=== PATIENT | male | born 1940 | race Caucasian/White ===

== ENCOUNTER 2019-06-30 01:30 | Day surgery (SDC) | payer MEDICARE, SELFPAY ==
[2019-06-17 14:47] VITALS: BMI 19.8
[2019-06-30] VITALS (12 sets, daily range): BP systolic 123–157; BP diastolic 48–74; PULSE 62–82; RESP 14–22; TEMP 36.3–36.9; O2SAT 95–100
--- NOTE | ~2019-06-30 | XR_ITS ---
EXAMINATION: XR retrograde pyelogram LT DATE: 06/30/2019 18:04 [employer] INDICATION: Renal stones TECHNIQUE: Multiple fluoroscopic images from a left retrograde pyelogram are submitted for review.] FINDINGS: Comparison made to KUB dated 07/15/2018. There is retrograde contrast injection into the lef t ureter with a demonstration of persistent stricture in the distal aspect of the left ureter. Ureter is normal in course and caliber. Renal collecting systems are normal. There are extensive renal kiersten rial calcifications. IMPRESSION: 1. 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 No significant ureteral dilation. Correlat e with real time procedural findings for details. Reviewed, dictated and finalized at location A. [employer] INST[employer]ER IMPRESSION: 1. 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 No significant urete ral dilation. Correlate with real time procedural findings for details.
--- NOTE | 2019-06-30 11:46 | PM.HPGS ---
History of Present Illness History of Present Illness Consent: Risks, benefits, and alternatives have been discussed and questions answered. Patient agrees to proceed with procedure. Chief complaint: Ureteral Ca Narrative: Pineda Avalos is a 79 year old male who is s/p left distal ureterectomy with Boari flap. Recent surveillance cystoscopy showed several recurrences in bladder. Review of Systems Cardiovascular: Cardiovascular: Denies chest pain, Denies lightheadedness, Denies palpitations and Denies dyspnea Respiratory: Respiratory: Denies dyspnea Gastrointestinal: Gastrointestinal: Denies diarrhea, Denies nausea and Denies vomiting Genitourinary: Genitourinary: Denies hematuria and Denies dysuria Endocrine: Endocrine: Denies palpitations PMFSH Past Medical History Medical History Cancer Kidney disease Surgical History Surgical History History of angioplasty Family History Family History Father Hypertension Patient's father is Sibling Hypertension Family history of malignant neoplasm of male breast Family history of chronic obstructive pulmonary disease Family history unknown Family history of malignant neoplasm of breast in first degree relative Mother Patient's mother is Family history of Parkinson's disease, Onset Age: 79 Family history of Alzheimer's disease, Onset Age: 79 Acute myocardial infarction, Onset Age: 79 Other Familial primary pulmonary hypertension Social History Social History Smoking status: Former smoker Smoking end date: 06/01/12 Alcohol intake: never Meds Home Medications and Allergies Home Medications Medication Instructions Recorded Confirmed Type albuterol sulfate [ProAir HFA] 1 - 2 puff INHALATION QID PRN 03/18/19 06/17/19 History cyanocobalamin (vitamin B-12) 1,000 mcg PO DAILY 03/18/19 06/17/19 History ferrous sulfate 324 mg PO DAILY 03/18/19 06/17/19 History folic acid 0.4 mg PO DAILY 03/18/19 06/17/19 History lybgiqbd-sks-WG-lycopen-lutein 1 tablet PO DAILY 03/18/19 06/17/19 History [Centrum Silver] gabapentin 300 mg capsule 300 mg PO HS #90 cap 05/26/19 06/17/19 Rx tiotropium bromide 18 mcg capsule 1 cap INHALATION DAILY #30 05/26/19 06/17/19 Rx with inhalation device inhalation amiodarone 200 mg PO DAILY 06/17/19 06/17/19 History apixaban [Eliquis] 2.5 mg PO BID 06/17/19 06/17/19 History calcitriol 0.25 mcg PO 3XW 06/17/19 06/17/19 History carbidopa-levodopa 1 tablet PO TID 06/17/19 06/17/19 History Allergies Allergy/AdvReac Type Severity Reaction Status Date / Time latanoprost Allergy Mild CURLED Verified 06/17/19 13:26 EYELASHES UNDER AND AFFECTED EYESIGHT Exam Const: General: no acute distress Resp: Effort & Inspection: normal respiratory effort GI: Inspection: non-distended GI Palp: No abdominal tenderness and No Guarding due to palpation present (GI) Auscultation: normal bowel sounds Assessment and Plan Assessment and plan (1) Cancer of overlapping sites of bladder: Code(s): C67.8 - Malignant neoplasm of overlapping sites of bladder Status: Acute (2) History of cancer of ureter: Code(s): Z85.54 - Personal history of malignant neoplasm of ureter Status: Acute Assessment and Plan: Transurethal resection bladder tumors. Cystoscopy, bilateral retrograde pyelography.
--- NOTE | 2019-06-30 12:27 | WPDANESEPPF ---
Anes - Initial Pre Proc Eval Procedure: Operation Date: 06/30/19 14:00 Proposed Procedures p Cystoscopy, Bilateral Retrograde Pyelogram - Syed Burns MD s Trans Urethral Resection Bladder Tumor - Syed Burns MD Date/Time: 06/30/19 12:27 Surgeon: Syed Burns MD Pre Op Diagnosis: Ureteral Ca Patient Data Age: 79 Gender: M Height: 6 ft Weight: 65.1 kg Allergies Allergy/AdvReac Type Severity Reaction Status Date / Time latanoprost Allergy Mild CURLED Verified 06/30/19 12:16 EYELASHES UNDER AND AFFECTED EYESIGHT Home Medications Medication Instructions Recorded Confirmed Type albuterol sulfate [ProAir HFA] 1 - 2 puff INHALATION QID PRN 03/18/19 06/30/19 History cyanocobalamin (vitamin B-12) 1,000 mcg PO DAILY 03/18/19 06/30/19 History ferrous sulfate 324 mg PO DAILY 03/18/19 06/30/19 History folic acid 0.4 mg PO DAILY 03/18/19 06/30/19 History puqrzhgq-qtz-BQ-lycopen-lutein 1 tablet PO DAILY 03/18/19 06/30/19 History [Centrum Silver] gabapentin 300 mg capsule 300 mg PO HS #90 cap 05/26/19 06/30/19 Rx tiotropium bromide 18 mcg capsule 1 cap INHALATION DAILY #30 05/26/19 06/30/19 Rx with inhalation device inhalation amiodarone 200 mg PO DAILY 06/17/19 06/30/19 History apixaban [Eliquis] 2.5 mg PO BID 06/17/19 06/30/19 History calcitriol 0.25 mcg PO 3XW 06/17/19 06/30/19 History carbidopa-levodopa 1 tablet PO TID 06/17/19 06/30/19 History Patient hx anesthesia problems: none Family hx anesthesia problems: none PMFSH Past Medical History Medical History Cancer Kidney disease Surgical History Surgical History History of angioplasty Family History Family History Father Hypertension Patient's father is Sibling Hypertension Family history of malignant neoplasm of male breast Family history of chronic obstructive pulmonary disease Family history unknown Family history of malignant neoplasm of breast in first degree relative Mother Patient's mother is Family history of Parkinson's disease, Onset Age: 79 Family history of Alzheimer's disease, Onset Age: 79 Acute myocardial infarction, Onset Age: 79 Other Familial primary pulmonary hypertension Social History Social History Smoking status: Former smoker Smoking end date: 06/01/12 Alcohol intake: never Anes - Eval Final PreProcedure Day of Procedure 06/30/19 12:27 Patient weight: normal Heart: regular rate and rhythm Lungs: decreased breath sounds Airway: Mallampati scale class II Neurological: other (alert) Last oral intake: >/= 8 hours ASA classification: IV Emergent: no Anesthetic plan: proceed Anesthesia type and monitoring: general LMA and standard monitoring Informed Consent: The patient's anesthetic plan and its attendant risks and benefits were discussed with the patient/family/POA. Questions were solicited and answers provided to the satisfaction of the patient/family/POA.
[2019-06-30] MEDS: LACTATED RINGERS 1,000 ML 30 ML IV CONT ×2 (12:30→15:15)
[2019-06-30 12:47] LABS: Glucose Point of Care 125 (65-105)
[2019-06-30] MEDS: ceFAZolin 2 GM/D5W 50 ML 2 GM/50 ML BAG IVPB (13:18)
[2019-06-30] MEDS: LIDOCAINE HCL 2% GEL UROJET 10 ML PKG MUCOUS MEM (13:20)
[2019-06-30 14:48] LABS: Glucose Point of Care 129 (65-105)
--- NOTE | 2019-06-30 14:53 | P.OP_ITS ---
Procedure Note - Detailed Date of procedure: 06/30/19 Pre-op diagnosis: Ureteral Ca Post-op diagnosis: same Procedure performed: 1. Cystoscopy, left RPG, attempted right RPG 2. TURBT (large, 9cm). 3. TURP Description of procedure: The patient was brought to the operative suite where he is prepped and draped in a routine sterile fashion while in the dorsal lithotomy position. This is done after the uneventful administration of a gener al LMA anesthetic. 2% Xylocaine jelly is introduced intraurethrally and allowed to stand for an appropriate period of time. A 24F resectoscope sheath was placed in the bladder and the bladder is circumferentially inspected carefully. He is found to have extensive urothelial carcinoma involving essentially the entire posterior bladder wall. Surprisingly, this does not involve the left ureteral orifice which is identified and preserved throughout this procedure. A left retrograde pyelogram was obtained with 8 F bulb-tipped catheter. This reveals no obstruction or filling defects of the left ureter or collecting system. I can identify the point where the right ureter empties into the right lateral bladder wall but because of the configuration of the Boari flap that was unable to intubate the right ureter for retrograde pyelography. I resected the areas of urothelial carcinoma in their entirety with an attempt made to include detrusor muscle for pathological evaluation of invasion. The base and periphery of these resected sites are cauterized with a rollerball electrode. I then obtained a random biopsy from a separate sites in the bladder and cauterized the base of that as well. This neoplasm extends into the prostatic urethra but appears to be quite superficial. I did a superficial resection of the prostate a bit circumferentially from the bladder neck to the verumontanum. The sites were likewise cauterized for hemostasis. A 22 F hematuria catheter is placed to continuous irrigation. Efflux was clear at the termination of the procedure. Estimated blood loss was 75 cc. The patient is taken to the recovery room having tolerated this procedure well. Anesthesia: GLMA Surgeon: Syed Burns MD Estimated blood loss (mL): 75 Drains: Yes (22F hematuria catheter) Packing: No Pathology: yes Complications: No immediate complications Condition: stable Disposition: PACU
--- NOTE | 2019-06-30 15:34 | SUR.PHASEI ---
1515; PT DENIES PAIN. C/O URGENCY WITH LAMA/CBI. FENTANYL GIVEN. 1535; SPOUSE UPDATED.
--- NOTE | 2019-06-30 16:03 | SUR.PHASEI ---
1600; CALLED DR ROMERO. CLARIFIED MEDICATION ORDERS HE PLACED IN COMPUTER CHART.
[2019-06-30] MEDS: DEXTROSE 5%/LACTATED RINGERS 1,000 ML 125 ML IV CONT (16:51)
[2019-06-30] MEDS: DOCUSATE SODIUM 100 MG CAPSULE PO (17:36)
[2019-06-30] MEDS: CARBIDOPA/LEVODOPA 25/250 MG TABLET 1 TABLET PO (17:36)
[2019-07-01] MEDS: DEXTROSE 5%/LACTATED RINGERS 1,000 ML 125 ML IV CONT (01:10)
[2019-07-01 05:33] LABS: Hemoglobin 10.4 g/dL (14.0-18.0)
[2019-07-01 05:51] LABS: Blood Urea Nitrogen 42 mg/dL (9-20); Calcium 8.1 mg/dL (8.4-10.2); Carbon Dioxide 24 mmol/L (22-30); Chloride 102 mmol/L (98-107); Estimated CRCL calculation 18 ml/min; Estimated Glomerular Filt Rate 23; Glucose 122 mg/dL (75-110); Potassium 5.1 mmol/L (3.4-5.0); Sodium 133 mmol/L (137-145)
[2019-07-01 05:53] VITALS: BP 129/59; PULSE 65; RESP 20; TEMP 37.6; O2SAT 97
--- NOTE | 2019-07-01 08:07 | WPDUROPN2 ---
Progress Note: A&P Assessment and Plan (1) Cancer of overlapping sites of bladder: Code(s): C67.8 - Malignant neoplasm of overlapping sites of bladder Status: Acute Assessment and Plan: Comfortable and urine clear after extensive TURBT/superficial prostate resection. Stop CBI / voiding trial later in day. Serum creat. 2.7 is typical for this pt. Subjective Subjective Date/Time Seen: 07/01/19 08:07 POD #1 TURP/TURBT Comfortable, no complaints Review of Systems Cardiovascular: Cardiovascular: Denies chest pain, Denies lightheadedness, Denies palpitations and Denies dyspnea Respiratory: Respiratory: Denies dyspnea Gastrointestinal: Gastrointestinal: Denies diarrhea, Denies nausea and Denies vomiting Genitourinary: Genitourinary: Denies hematuria and Denies dysuria Endocrine: Endocrine: Denies palpitations Exam Const: General: no acute distress Resp: Effort & Inspection: normal respiratory effort GI: Inspection: non-distended GI Palp: No abdominal tenderness and No Guarding due to palpation present (GI) Auscultation: normal bowel sounds Objective Data Vital Signs Vital Signs: Vital Signs - 24 hr 06/30/19 12:39 06/30/19 14:36 06/30/19 14:50 Temperature 36.3 C L 36.4 C L 36.7 C Pulse Rate 66 82 74 Respiratory Rate 18 14 18 Blood Pressure 134/54 L 152/72 H 148/70 H Pulse Oximetry 99 100 100 06/30/19 15:05 06/30/19 15:20 06/30/19 15:35 Temperature 36.7 C 36.7 C Pulse Rate 75 74 72 Respiratory Rate 22 H 20 20 Blood Pressure 157/74 H 141/72 H 147/69 H Pulse Oximetry 99 95 95 06/30/19 15:56 06/30/19 16:42 06/30/19 16:57 Temperature 36.9 C 36.6 C Pulse Rate 68 68 71 Respiratory Rate 18 16 16 Blood Pressure 146/60 H 131/52 L 134/58 L Pulse Oximetry 95 99 99 06/30/19 17:00 06/30/19 17:27 06/30/19 21:56 Temperature 36.9 C 36.7 C 36.7 C Pulse Rate 69 67 62 Respiratory Rate 16 16 20 Blood Pressure 124/54 L 129/48 L 123/48 L Pulse Oximetry 99 100 98 07/01/19 05:53 Temperature 37.6 C Pulse Rate 65 Respiratory Rate 20 Blood Pressure 129/59 L Pulse Oximetry 97 Intake/Output Intake/Output: Intake & Output 06/28/19 06/29/19 06/30/19 07/01/19 23:59 23:59 23:59 23:59 Intake Total 930 1950 Output Total 9350 1350 Balance -8420 600 Meds/Results Medications: Active Medications Generic Name Dose Route Start Last Admin Trade Name Freq PRN Reason Stop Dose Admin Hydrocodone Bitart/Acetaminophen 1 tab 06/30/19 15:04 [place] 5-325 Mg PO Q4H PRN Pain Rated 1-6 Albuterol 1 - 2 puff 06/30/19 16:01 Proventil Hfa INHALATION QID PRN Shortness Of Breath Amiodarone HCl 200 mg 07/01/19 09:00 Pacerone PO DAILY [facility] Calcitriol 0.25 mcg 07/01/19 09:00 Rocaltrol PO [id number] [facility] Carbidopa/Levodopa 1 tablet 06/30/19 17:00 06/30/19 17:36 Sinemet 25/250 Mg PO 1 tablet TID [facility] Administration Cephalexin HCl 500 mg 07/01/19 13:00 Keflex Capsule PO QID [facility] Cyanocobalamin 1,000 mcg 07/01/19 09:00 Vitamin B-12 Tab PO DAILY [facility] Docusate Sodium 100 mg 06/30/19 17:00 06/30/19 17:36 Colace Capsule PO 100 mg BID [facility] Administration Ferrous Sulfate 324 mg 07/01/19 09:00 Ferrous Sulfate PO DAILY [facility] Folic Acid 0.4 mg 07/01/19 09:00 Folic Acid PO DAILY [facility] Hyoscyamine 0.125 mg 06/30/19 15:04 Levsin Tablet SUBLINGUAL Q6H PRN Bladder Spasm Dextrose/Lactated Ringer's 1,000 mls @ 125 mls/hr 06/30/19 15:05 07/01/19 06:29 Dextrose 5%/Lactated Ringers IV CONT 125 mls/hr .Q8H ANDREA Infusion Morphine Sulfate 2 mg 06/30/19 15:04 Morphine Sulfate Inj IV PUSH Q2H PRN Pain Rated 7-10 Naloxone HCl 0.1 mg 06/30/19 15:04 Narcan IV PUSH Q2M PRN Opiate Reversal Ondansetron HCl 4 mg 06/30/19 15:04 Zofran Inj IV PUSH Q12H PRN Nausea And Vomiting Radiology Results: ITS Impressions
[2019-07-01] MEDS: CARBIDOPA/LEVODOPA 25/250 MG TABLET 1 TABLET PO ×3 (08:35→17:02)
[2019-07-01] MEDS: CYANOCOBALAMIN 1,000 MCG TABLET 1000 MCG PO (08:35)
[2019-07-01] MEDS: DOCUSATE SODIUM 100 MG CAPSULE PO ×2 (08:36→17:02)
[2019-07-01] MEDS: FOLIC ACID 0.4 MG TABLET PO (08:36)
[2019-07-01] MEDS: FERROUS SULFATE 324 MG TABLET PO (08:36)
[2019-07-01] MEDS: calcitrioL 0.25 MCG CAPSULE PO (08:37)
--- NOTE | 2019-07-01 09:49 | WPDANESPN ---
Anes - Prog Note Post-Op Date/Time: 07/01/19 09:49 Cardiovascular status: normal Respiratory status: normal Airway patency: baseline Mental status: baseline Post-Op hydration status: normal Vital Signs: Last Vital Signs Temp 37.6 C 07/01/19 05:53 Pulse 65 07/01/19 05:53 Resp 20 07/01/19 05:53 BP 129/59 L 07/01/19 05:53 Pulse Ox 97 07/01/19 05:53 I/O: Intake & Output 06/30/19 07/01/19 07/01/19 23:59 07:59 15:59 Intake Total 680 1950 240 Output Total 1300 1350 Balance -620 600 240 Laboratory Tests 07/01/19 04:56 07/01/19 04:56 06/30/19 06/30/19 07/01/19 12:45 14:46 04:56 Hgb 10.4 L Hct 32.0 L Sodium Potassium Chloride Carbon Dioxide BUN Creatinine Estim Creat Clear Calc Estimated GFR Glucose POC Capillary Glucose 125 H 129 H Calcium 07/01/19 04:56 Hgb Hct Sodium 133 L Potassium 5.1 H Chloride 102 Carbon Dioxide 24 BUN 42 H Creatinine 2.70 H Estim Creat Clear Calc 18 Estimated GFR 23 L Glucose 122 H POC Capillary Glucose Calcium 8.1 L Post-procedural complaints: none Patient Feedback: Patient satisfied with anesthetic care.
[2019-07-01] MEDS: CEPHALEXIN 500 MG CAPSULE PO ×2 (12:02→17:02)
[2019-07-01 14:00] VITALS: BP 106/49; PULSE 88; RESP 16; TEMP 36.6; O2SAT 96
--- NOTE | 2019-07-01 17:04 | PM.DS ---
DS: Diagnosis Admitting Diagnosis Admitting Diagnosis: Anemia in chronic kidney disease DS: Summary Time Spent with Patient Time attestation: Total time spent providing and/or coordinating discharge services: 20 min. This patient with extensive, recurrent bladder cancer extending into prostatic urethra admitted on the morning of his planned TURPB. The procedure was undertaken on that same day and included, not only extensive resection of his bladder but also superficially in his prostatic urethra. His post-operative course was uneventful. On the evening of the procedure he was tolerating a diet. On POD#1 his urine was clear on CBI. The urine remained clear and, therefore, the catheter was removed late morning. The patient was observed for several hours, until he demonstrated he could void effectively without significant hematuria. He was discharged with careful instruction on limiting physical activity x2 weeks and plans to f/ in 2-3 weeks. At discharge he was comfortable and tolerating a diet. Exam Const: General: no acute distress Resp: Effort & Inspection: normal respiratory effort GI: Inspection: non-distended GI Palp: No abdominal tenderness and No Guarding due to palpation present (GI) Auscultation: normal bowel sounds DS: Data Data Completed and Pending Pending studies at discharge: Pending at discharge 06/30/19 13:20 Surgical [PTH] Routine Surgical [PTH] Routine Surgical [PTH] Routine Labs on day of discharge: Labs from last 24 hours 07/01/19 07/01/19 04:56 04:56 Hgb 10.4 L Hct 32.0 L Sodium 133 L Potassium 5.1 H Chloride 102 Carbon Dioxide 24 BUN 42 H Creatinine 2.70 H Estim Creat Clear Calc 18 Estimated GFR 23 L Glucose 122 H Calcium 8.1 L Discharge Plan Discharge Patient Disposition: Home, Self-Care Discharge Instructions: 1) Activity: No lifting/straining >15lbs. x2 weeks. 2) Diet: Resume normal pre-admission diet. 3) Follow-up: 2-3 weeks / call office for appointment ([phone]). Discharge Orders: Discharge Order (Routine); Ordered 07/01/19 Ordered By: Syed Burns Discharge Medications: New hydrocodone-acetaminophen 5-325 mg tablet 1 - 2 tablet PO Q6H PRN (Reason: pain) Qty: 20 RF: 0 sulfamethoxazole-trimethoprim 800-160 mg tablet 1 tablet PO Q12H Qty: 6 RF: 0 Continued albuterol sulfate [ProAir HFA] 90 mcg/actuation Hfa Aerosol Inhaler 1 - 2 puff INHALATION QID PRN (Reason: Shortness Of Breath) RF: 0 cyanocobalamin (vitamin B-12) 1,000 mcg Tablet 1,000 mcg PO DAILY RF: 0 ferrous sulfate 324 mg (65 mg iron) Tablet,Delayed Release (Dr/Ec) 324 mg PO DAILY RF: 0 folic acid 400 mcg Tablet 0.4 mg PO DAILY RF: 0 carbidopa-levodopa 25-250 mg Tablet 1 tablet PO TID RF: 0 calcitriol 0.25 mcg Capsule 0.25 mcg PO 3XW RF: 0 gabapentin 300 mg capsule 300 mg PO HS Qty: 90 RF: 1 tiotropium bromide 18 mcg capsule, w/inhalation device 1 cap INHALATION DAILY Qty: 30 RF: 2 Held Centrum Silver 0.4-300-250 mg-mcg-mcg Tablet 1 tablet PO DAILY RF: 0 Hold Instructions: Resume on 07/06/19. Eliquis 2.5 mg Tablet 2.5 mg PO BID RF: 0 Hold Instructions: Resume on 07/06/19. Discontinued amiodarone 200 mg Tablet 200 mg PO DAILY RF: 0
== END 2019-07-01 18:05 | disposition home or self-care (01) ==
LOC: ANHSURGERY 11:42 → ANH2MED 07-01 09:12
PROVIDERS: PCP Internal Medicine; Visit Provider Urology
PROC: (CPT 52352; principal; 2019-06-30 14:00)
PROC: 0TBB8ZZ Excision of Bladder, Via Natural or Artificial Opening Endoscopic (ICD-10-PCS; CPT 52601; 2019-06-30 14:00)
PROC: 0VT08ZZ Resection of Prostate, Via Natural or Artificial Opening Endoscopic (ICD-10-PCS; CPT 52601; 2019-06-30 14:00)
DX: C67.8 Malignant neoplasm of overlapping sites of bladder (principal); C67.4 Malignant neoplasm of posterior wall of bladder; C68.0 Malignant neoplasm of urethra; N18.9 Chronic kidney disease, unspecified; D63.1 Anemia in chronic kidney disease; Z79.01 Long term (current) use of anticoagulants; Z87.891 Personal history of nicotine dependence; Z85.54 Personal history of malignant neoplasm of ureter
CPT/HCPCS: 52601; 52240; 52204; 36415; 74420; 80048; 85014; 85018; 87040; 88305; A9270; C1758; C1769; C1887; J0690; J1100; J2405; J2704; J3010; J7120; J7121; Q9966

== ENCOUNTER 2019-08-03 09:15 | Outpatient (CLI) | payer MEDICARE, SELFPAY ==
--- NOTE | ~2019-08-03 | CT_ITS ---
EXAMINATION: CT chest wo con DATE: 08/03/2019 09:33 INDICATION: Malignant neoplasm of upper lobe LT lung TECHNIQUE: Computed tomography (CT) of the chest was performed malignant neoplasm of the left upper l obe intravenous contrast. Additional 3D reconstructions utilizing coronal maximum intensity projectio n (MIP) were performed. Automated exposure control and iterative reconstruction technique were employ ed. The dose-length product was 149.55 mGy-cm. 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 Volume loss in the left upper lobe with no significant change in bandlike atelectasis/scarring extending towards a spiculated suprahilar mass in the left upper lobe. The mass is unchanged with og ntical corresponding measurements of 2.5 x 2.4 cm on series 4, image 42. Small calcified nodule consi stent with within the region of scarring at the right apex and a few tiny calcified nodules at the ri ght lung base, all consistent with old granulomatous disease. No new pulmonary nodules, pulmonary javier ma or pleural effusion. Heart size is normal. Atherosclerotic coronary artery calcifications. No riaz cardial effusion. Bilateral gynecomastia. No pathologically enlarged thoracic lymphadenopathy. Ectati c proximal descending thoracic aorta which measures up to 3.5 cm maximal diameter. Atherosclerotic ca lcifications at several of the arteries at the bilateral renal flavio. Visualized upper abdomen is othe rwise unremarkable. Right internal jugular central venous port catheter with distal tip at the caudal superior vena cava. Mild lower thoracic spondylosis. 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 No other suspicious lytic or daisy stic bone lesions. IMPRESSION: 1. No interval change in a spiculated 2.4 x 2.5 cm suprahilar left upper lobe mass consistent with tr eated lung cancer. No evident progressive or metastatic disease. 2. 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 Reviewed, dictated and finalized at location A. TNUT TANNER IMPRESSION: 1. No interval change in a spiculated 2.4 x 2.5 cm suprahilar left upper lobe m ass consistent with treated lung cancer. No evident progressive or metastatic d isease. 2. 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
== END 2019-08-03 09:16 | disposition home or self-care (01) ==
LOC: ANHIMG 09:17
PROVIDERS: PCP Internal Medicine; Visit Provider Internal Medicine Hematology & Oncology
DX: C34.12 Malignant neoplasm of upper lobe, left bronchus or lung (principal); R91.8 Other nonspecific abnormal finding of lung field
CPT/HCPCS: 71250

== ENCOUNTER 2019-08-19 07:24 | Outpatient (CLI) | payer MEDICARE, SELFPAY ==
[2019-08-19 08:06] LABS: Total Protein Urine Random 49 mg/dL
[2019-08-19 08:10] LABS: Albumin Level 3.9 g/dL (3.5-5.1); Blood Urea Nitrogen 43 mg/dL (9-20); Calcium 8.7 mg/dL (8.4-10.2); Carbon Dioxide 27 mmol/L (22-30); Chloride 107 mmol/L (98-107); Estimated Glomerular Filt Rate 19; Glucose 114 mg/dL (75-110); Phosphorus 3.7 mg/dL (2.5-4.5); Potassium 4.5 mmol/L (3.4-5.0); Sodium 139 mmol/L (137-145)
[2019-08-19 08:22] LABS: Parathyroid Intact 191.2 pg/mL (7.5-53.5)
== END 2019-08-19 07:25 | disposition home or self-care (01) ==
PROVIDERS: PCP Internal Medicine; Visit Provider Internal Medicine Nephrology
DX: I12.9 Hypertensive chronic kidney disease with stage 1 through stage 4 chronic kidney disease, or unspecified chronic kidney disease (principal); N18.4 Chronic kidney disease, stage 4 (severe); R80.8 Other proteinuria
CPT/HCPCS: 36415; 80069; 82306; 82570; 83970; 84156

== ENCOUNTER 2019-11-09 11:33 | Outpatient (CLI) | payer MEDICARE, SELFPAY ==
[2019-11-09 11:56] LABS: Cholesterol 129 mg/dL (0-200); HDL Direct 33 mg/dL; Triglycerides 124 mg/dL (<150)
[2019-11-09 12:07] LABS: LDL Cholesterol Direct 60 mg/dL
== END 2019-11-09 11:34 | disposition home or self-care (01) ==
PROVIDERS: PCP Internal Medicine; Visit Provider Internal Medicine Cardiovascular Disease
DX: I73.9 Peripheral vascular disease, unspecified (principal); I48.92 Unspecified atrial flutter; N18.4 Chronic kidney disease, stage 4 (severe); I12.9 Hypertensive chronic kidney disease with stage 1 through stage 4 chronic kidney disease, or unspecified chronic kidney disease
CPT/HCPCS: 36415; 80061

== ENCOUNTER 2019-11-10 08:39 | Outpatient (CLI) | payer MEDICARE, SELFPAY ==
--- NOTE | ~2019-11-10 | CT_ITS ---
EXAMINATION:CT chest wo con DATE: 11/10/2019 09:21 INDICATION: Malignant neoplasm of the upper lobe of left lung. TECHNIQUE: Computed tomography (CT) of the chest was performed without intravenous contrast. Automate d exposure control and iterative reconstruction technique were employed. The dose-length product (DLP ) was 153.64 mGy-cm. COMPARISON: Chest CT 08/03/2019 FINDINGS: There is moderate emphysema. There is scarring at the lung apices, right worse than left. T here is a 3.2 x 2.3 cm mass in the perihilar left upper lobe. No pleural effusion. The heart size is normal. There are coronary artery calcifications. There are calcifications of the aortic valve. No pe ricardial effusion. There is bilateral gynecomastia. There is a right internal jugular port with tip in superior vena cava. There is severe cervical spondylosis and mild thoracic spondylosis. 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 IMPRESSION: 1. Stable mass in perihilar left upper lobe, consistent with primary bronchogenic carcinoma. Reviewed, dictated and finalized at location A. IMPRESSION: 1. Stable mass in perihilar left upper lobe, consistent with primary bronchogen ic carcinoma.
== END 2019-11-10 08:40 | disposition home or self-care (01) ==
LOC: ANHIMG 08:43
PROVIDERS: PCP Internal Medicine; Visit Provider Internal Medicine Hematology & Oncology
DX: C34.12 Malignant neoplasm of upper lobe, left bronchus or lung (principal)
CPT/HCPCS: 71250

== ENCOUNTER 2019-11-22 00:20 | Outpatient (CLI) | payer MEDICARE, SELFPAY ==
[2019-11-22 18:56] LABS: SARS-CoV-2 RNA PCR Negative
== END 2019-11-22 00:21 | disposition home or self-care (01) ==
LOC: ANHCOVIDDT 00:20
PROVIDERS: PCP Internal Medicine; Visit Provider Urology
DX: Z01.818 Encounter for other preprocedural examination (principal); Z11.59 Encounter for screening for other viral diseases; C67.9 Malignant neoplasm of bladder, unspecified
CPT/HCPCS: 36415; 85610; 85730; 87635; C9803; U0003

== ENCOUNTER 2019-11-22 08:39 | Outpatient (CLI) | payer MEDICARE, SELFPAY ==
[2019-11-22 10:14] LABS: Prothrombin Time 13.2 Seconds (11.1-14.7)
[2019-11-22 10:15] LABS: Partial Thromboplastin Time 35.7 SECONDS (22.3-36.8)
== END 2019-11-22 08:40 | disposition home or self-care (01) ==
LOC: ANHSURGERY 08:41
PROVIDERS: Anesthesiology; PCP Internal Medicine; Visit Provider Urology
DX: Z01.818 Encounter for other preprocedural examination (principal); D63.1 Anemia in chronic kidney disease; N18.3 Chronic kidney disease, stage 3 (moderate)
CPT/HCPCS: 36415; 85610; 85730

== ENCOUNTER 2019-11-24 00:39 | Day surgery (SDC) | payer MEDICARE, SELFPAY ==
[2019-11-18 14:47] VITALS: BMI 20.3
--- NOTE | 2019-11-18 15:53 | PM.HPGS ---
History of Present Illness History of Present Illness Consent: Risks, benefits, and alternatives have been discussed and questions answered. Patient agrees to proceed with procedure. 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 Recent surveillance cystoscopy shows multiple recurrences of urothelial carcinoma in his bladder. Review of Systems Cardiovascular: Cardiovascular: Denies chest pain, Denies lightheadedness, Denies palpitations and Denies dyspnea Respiratory: Respiratory: Denies dyspnea Gastrointestinal: Gastrointestinal: Denies diarrhea, Denies nausea and Denies vomiting Genitourinary: Genitourinary: Denies hematuria and Denies dysuria Endocrine: Endocrine: Denies palpitations PMFSH Past Medical History Medical History Cancer Kidney disease Surgical History Surgical History History of angioplasty Family History Family History Father Hypertension Patient's father is Sibling Hypertension Family history of malignant neoplasm of male breast Family history of chronic obstructive pulmonary disease Family history unknown Family history of malignant neoplasm of breast in first degree relative Mother Patient's mother is Family history of Parkinson's disease, Onset Age: 79 Family history of Alzheimer's disease, Onset Age: 79 Acute myocardial infarction, Onset Age: 79 Other Familial primary pulmonary hypertension Social History Social History (Reviewed 07/07/19 @ 10:05 by Christen Alberto [facility]) Smoking packs per day: 1 Smoking cigarettes per day: 20.0 Years smoked: 50 Smoking pack-years: 50.00 Smoking status: Former smoker Tobacco type: cigarettes Smoking end date: 06/01/12 Alcohol intake: never Substance use: never Substance use type: does not use Gender identity (if verbalized by the patient): Male Spiritual care concerns: No Agree to blood products: Yes Meds Home Medications and Allergies Home Medications Medication Instructions Recorded Confirmed Type Centrum Silver 1 tablet PO DAILY 03/18/19 11/18/19 History cyanocobalamin (vitamin B-12) 1,000 mcg PO DAILY 03/18/19 11/18/19 History ferrous sulfate 324 mg PO DAILY 03/18/19 11/18/19 History folic acid 0.4 mg PO DAILY 03/18/19 11/18/19 History gabapentin 300 mg capsule 300 mg PO HS #90 cap 05/26/19 11/18/19 Rx calcitriol 0.25 mcg PO 3XW 06/17/19 11/18/19 History carbidopa-levodopa 1 tablet PO TID 06/17/19 11/18/19 History amiodarone 200 mg tablet 200 mg PO DAILY #30 tablet 08/25/19 11/18/19 Rx albuterol sulfate 90 mcg/actuation 1 inhalation INHALATION Q4H PRN 08/26/19 11/18/19 Rx aerosol inhaler #18 gm apixaban 2.5 mg tablet 2.5 mg PO BID #60 tablet 11/01/19 11/18/19 Rx umeclidinium 62.5 mcg-vilanterol 1 inhalation INHALATION Q24H #60 11/08/19 11/18/19 Rx 25 mcg/actuation powdr for each inhalation Allergies Allergy/AdvReac Type Severity Reaction Status Date / Time latanoprost Allergy Mild CURLED Verified 11/18/19 14:35 EYELASHES UNDER AND AFFECTED EYESIGHT Exam Const: General: no acute distress Resp: Effort & Inspection: normal respiratory effort GI: Inspection: non-distended GI Palp: No abdominal tenderness and No Guarding due to palpation present (GI) Auscultation: normal bowel sounds Assessment and Plan Assessment and plan (1) Bladder cancer: Qualifiers: Bladder location: unspecified site Qualified Code(s): C67.9 - Malignant neoplasm of bladder, unspecified Code(s): C67.9 - Malignant neoplasm of bladder, unspecified Status: Acute Assessment and Plan: cystosco
[2019-11-24] VITALS (7 sets, daily range): BP systolic 150–175; BP diastolic 53–67; PULSE 51–57; RESP 16–23; TEMP 36.3–36.4; O2SAT 97–100
--- NOTE | ~2019-11-24 | XR_ITS ---
EXAMINATION: XR retrograde pyelogram RT DATE: 11/24/2019 09:03 INDICATION: Cystoscopy. Removal of foreign body. Right retrograde Polygram. TECHNIQUE: Fluoroscopic images of the abdomen and pelvis were obtained during procedure performed by Dr. Burns. Radiologist was not present for the imaging or procedure. The amount of fluoroscopy time used during this procedure was 1.8 minutes. COMPARISON: None. FINDINGS: Initial image demonstrates a looped wire consistent with a snare extend beyond the tip of a cystoscop e projecting over the central pelvis. Subsequent images demonstrate a catheter and wire advanced into the right renal pelvis. Retrograde contrast administration demonstrates mild to moderate right hydro nephrosis. Stenting at the left common and external iliac arteries. IMPRESSION: 1. Fluoroscopy utilized during reported foreign body removal from the bladder. See procedure note for further detail. 2. Mild to moderate right hydronephrosis. Reviewed, dictated and finalized at location A.
[2019-11-24] MEDS: LACTATED RINGERS 1,000 ML 30 ML IV CONT (06:50)
--- NOTE | 2019-11-24 07:16 | WPDHPUPDATE1 ---
History and Physical Update Update Date/Time: 11/24/19 07:16 History and Physical has been reviewed, including an updated exam of the patient. There are NO changes in the patient's condition. Risks, benefits, and alternatives have been discussed and questions answered. Patient agrees to proceed with procedure.
--- NOTE | 2019-11-24 07:23 | WPDANESEPPF ---
Anes - Initial Pre Proc Eval Procedure: Operation Date: 11/24/19 08:15 Proposed Procedures p Cystoscopy, Right Ureteroscopy, Right Retrograde Pyelogram - Syed Burns MD s Possible Transurethral Resection Bladder Tumor - Syed Burns MD Date/Time: 11/24/19 07:23 Surgeon: Syed Burns MD Pre Op Diagnosis: Bladder Ca Patient Data Age: 79 Gender: M Height: 1.83 m Weight: 68 kg Allergies Allergy/AdvReac Type Severity Reaction Status Date / Time latanoprost Allergy Mild CURLED Verified 11/24/19 07:22 EYELASHES UNDER AND AFFECTED EYESIGHT Home Medications Medication Instructions Recorded Confirmed Type Centrum Silver 1 tablet PO DAILY 03/18/19 11/18/19 History cyanocobalamin (vitamin B-12) 1,000 mcg PO DAILY 03/18/19 11/18/19 History ferrous sulfate 324 mg PO DAILY 03/18/19 11/18/19 History folic acid 0.4 mg PO DAILY 03/18/19 11/18/19 History gabapentin 300 mg capsule 300 mg PO HS #90 cap 05/26/19 11/18/19 Rx calcitriol 0.25 mcg PO 3XW 06/17/19 11/18/19 History carbidopa-levodopa 1 tablet PO TID 06/17/19 11/18/19 History amiodarone 200 mg tablet 200 mg PO DAILY #30 tablet 08/25/19 11/18/19 Rx albuterol sulfate 90 mcg/actuation 1 inhalation INHALATION Q4H PRN 08/26/19 11/18/19 Rx aerosol inhaler #18 gm apixaban 2.5 mg tablet 2.5 mg PO BID #60 tablet 11/01/19 11/18/19 Rx umeclidinium 62.5 mcg-vilanterol 1 inhalation INHALATION Q24H #60 11/08/19 11/18/19 Rx 25 mcg/actuation powdr for each inhalation Patient hx anesthesia problems: none Family hx anesthesia problems: none PMFSH Past Medical History Medical History (Updated 11/23/19 @ 09:41 by Jefferson Rudd DO) Abdominal aortic aneurysm (AAA) >39 mm diameter Cancer Cancer of overlapping sites of bladder CKD (chronic kidney disease) stage 4, GFR 15-29 ml/min COPD (chronic obstructive pulmonary disease) Essential (primary) hypertension Former smoker Hereditary and idiopathic neuropathy, unspecified Kidney disease 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 Other and unspecified hyperlipidemia Parkinson's disease Vascular disease, peripheral Surgical History Surgical History (Updated 11/23/19 @ 09:41 by Jefferson Rudd DO) History of angioplasty S/P insertion of iliac artery stent Family History Family History Father Hypertension Patient's father is Sibling Hypertension Family history of malignant neoplasm of male breast Family history of chronic obstructive pulmonary disease Family history unknown Family history of malignant neoplasm of breast in first degree relative Mother Patient's mother is Family history of Parkinson's disease, Onset Age: 79 Family history of Alzheimer's disease, Onset Age: 79 Acute myocardial infarction, Onset Age: 79 Other Familial primary pulmonary hypertension Social History Social History Smoking packs per day: 1 Smoking cigarettes per day: 20.0 Years smoked: 50 Smoking pack-years: 50.00 Smoking status: Former smoker Tobacco type: cigarettes Smoking end date: 06/01/12 Alcohol intake: never Substance use: never Substance use type: does not use Gender identity (if verbalized by the patient): Male Spiritual care concerns: No Agree to blood products: Yes Anes - Eval Final PreProcedure Day of Procedure 11/24/19 07:23 Patient weight: normal Heart: regular rate and rhythm Lungs: clear to auscultation and normal air movement Airway: Mallampati scale class II Neurological: alert and oriented Last oral intake: >/= 8 hours ASA classification: IV Emergent: no Anesthetic plan: proceed Anesthesia type and monitoring: general LMA and standard monitoring Informed Consent: The patient's anesthetic plan and its attendant risks and benefits were discussed wit
[2019-11-24] MEDS: ceFAZolin 2 GM/D5W 50 ML 2 GM/50 ML BAG IVPB (08:12)
[2019-11-24] MEDS: LIDOCAINE HCL 2% GEL UROJET 10 ML PKG MUCOUS MEM (08:26)
--- NOTE | 2019-11-24 09:20 | P.OP_ITS ---
Procedure Note - Detailed Date of procedure: 11/24/19 Pre-op diagnosis: Bladder Ca Post-op diagnosis: same Procedure performed: 1. TURBT (small, 2cm). 2. Right retrograde pyelogram. 3. Right ureteroscopy. 4. Extraction foreign body from bladder. Description of procedure: patient is brought to the operative suite where he has prepped and draped in routine sterile fashion while in a dorsal lithotomy position after the uneventful induction of a general LMA anesthetic. A 24 F resectoscope was placed in his bladder and his bladder was carefully inspected. He has only very mild prostatic hyperplasia with minimal obstruction of the pr ostatic urethra. He has neoplasm in the posterior bladder wall which was resected in its entirety. This lesion measures about 1.5-2 cm in diameter. The base and periphery were cauterized. The remainder of the bladder mucosa is without hyperemia or apparent neoplasm. His reimplanted right ureter has a stitch in it that starting to form some stone on it. This is removed with meatotomy scissors. In the past a 0.035 in glidewire into the right renal pelvis. I dilated the distal most ureter and ureteroscopy with a 7.5 F digital ureteroscope. Retrograde pyelography was used to outline the collecting system and ensure the entire thing was inspected. There is no evidence of recurrence upper urinary tract carcinoma on the right side. Scopes and wires were removed and he was taken to the recovery room good condition. Anesthesia: GLMA Surgeon: Syed Burns MD Drains: No Packing: No Pathology: none sent Complications: No immediate complications Condition: stable Disposition: PACU
== END 2019-11-24 10:50 | disposition home health service (06) ==
PROVIDERS: PCP Internal Medicine; Visit Provider Urology
PROC: (CPT 52352; principal; 2019-11-24 08:15)
PROC: 0TBB8ZZ Excision of Bladder, Via Natural or Artificial Opening Endoscopic (ICD-10-PCS; CPT 52234; 2019-11-24 08:15)
DX: N30.00 Acute cystitis without hematuria (principal); N30.20 Other chronic cystitis without hematuria; N13.30 Unspecified hydronephrosis; Z85.51 Personal history of malignant neoplasm of bladder; Z18.89 Other specified retained foreign body fragments; I12.9 Hypertensive chronic kidney disease with stage 1 through stage 4 chronic kidney disease, or unspecified chronic kidney disease; N18.4 Chronic kidney disease, stage 4 (severe); E78.49 Other hyperlipidemia; G20 Parkinson's disease; J44.9 Chronic obstructive pulmonary disease, unspecified; G62.9 Polyneuropathy, unspecified; I73.9 Peripheral vascular disease, unspecified; Z95.820 Peripheral vascular angioplasty status with implants and grafts; Z90.6 Acquired absence of other parts of urinary tract; Z87.891 Personal history of nicotine dependence; Z85.118 Personal history of other malignant neoplasm of bronchus and lung; Z92.3 Personal history of irradiation; Z79.01 Long term (current) use of anticoagulants; Z79.899 Other long term (current) drug therapy
CPT/HCPCS: 52234; 74420; 88305; A9270; C1769; C1887; J0690; J2250; J2405; J2704; J3010; J7120; J9280; Q9966

== ENCOUNTER 2020-01-02 08:47 | Outpatient (CLI) | payer MEDICARE, SELFPAY ==
[2020-01-02 09:29] LABS: Total Protein Urine Random 28 mg/dL
[2020-01-02 09:32] LABS: Albumin Level 3.8 g/dL (3.5-5.1); Anion Gap 10.9 mmol/L (7-16); Blood Urea Nitrogen 41 mg/dL (9-20); Calcium 8.8 mg/dL (8.4-10.2); Carbon Dioxide 27 mmol/L (22-30); Chloride 104 mmol/L (98-107); Estimated Glomerular Filt Rate 23; Glucose 104 mg/dL (75-110); Phosphorus 3.6 mg/dL (2.5-4.5); Potassium 4.9 mmol/L (3.4-5.0); Sodium 137 mmol/L (137-145)
== END 2020-01-02 08:48 | disposition home or self-care (01) ==
LOC: ANHLAB 08:51
PROVIDERS: PCP Internal Medicine; Visit Provider Internal Medicine Nephrology
DX: I12.9 Hypertensive chronic kidney disease with stage 1 through stage 4 chronic kidney disease, or unspecified chronic kidney disease (principal); N18.3 Chronic kidney disease, stage 3 (moderate)
CPT/HCPCS: 36415; 80069; 82570; 84156

== ENCOUNTER 2020-03-19 01:06 | Outpatient (CLI) | payer MEDICARE, SELFPAY ==
[2020-03-19 17:41] LABS: SARS-CoV-2 RNA PCR Negative
== END 2020-03-19 01:07 | disposition home or self-care (01) ==
LOC: ANHCOVIDDT 01:07
PROVIDERS: PCP Internal Medicine; Visit Provider Urology
DX: Z01.812 Encounter for preprocedural laboratory examination (principal); Z20.828 Contact with and (suspected) exposure to other viral communicable diseases
CPT/HCPCS: 87635; C9803; U0003

== ENCOUNTER 2020-03-22 01:21 | Day surgery (SDC) | payer MEDICARE, SELFPAY ==
[2020-03-15 15:19] VITALS: BMI 19.9
--- NOTE | 2020-03-21 13:01 | WPDANESEPPF ---
Anes - Initial Pre Proc Eval Procedure: Operation Date: 03/22/20 09:30 Proposed Procedures p Cystoscopy, Bilateral Retrograde Pyelograms, Possible Right Ureteroscopy, - Syed Burns MD s Trans Urethral Resection Bladder Tumor with Mitomycin C - Syed Burns MD Date/Time: 03/21/20 13:01 Surgeon: Syed Burns MD Pre Op Diagnosis: ureteral CA,Bladder CA Patient Data Age: 80 Gender: M Height: 1.83 m Weight: 66.7 kg Allergies Allergy/AdvReac Type Severity Reaction Status Date / Time latanoprost Allergy Mild CURLED Verified 03/15/20 14:48 EYELASHES UNDER AND AFFECTED EYESIGHT Home Medications Medication Instructions Recorded Confirmed Type Centrum Silver 1 tablet PO DAILY 03/18/19 03/15/20 History cyanocobalamin (vitamin B-12) 1,000 mcg PO DAILY 03/18/19 03/15/20 History ferrous sulfate 324 mg PO DAILY 03/18/19 03/15/20 History folic acid 0.4 mg PO QPM 03/18/19 03/15/20 History calcitriol 0.25 mcg PO 3XW 06/17/19 03/15/20 History carbidopa-levodopa 1 tablet PO TID 06/17/19 03/15/20 History albuterol sulfate 90 mcg/actuation 1 inhalation INHALATION Q4H PRN 08/26/19 03/15/20 Rx aerosol inhaler #18 gm apixaban 2.5 mg tablet 2.5 mg PO BID #60 tablet 11/01/19 03/15/20 Rx umeclidinium 62.5 mcg-vilanterol 1 inhalation INHALATION Q24H #60 11/08/19 03/15/20 Rx 25 mcg/actuation powdr for each inhalation amiodarone 200 mg PO QAM 03/15/20 03/15/20 History gabapentin 300 mg PO HS 03/15/20 03/15/20 History Patient hx anesthesia problems: none Family hx anesthesia problems: none PMFSH Past Medical History Medical History (Updated 03/21/20 @ 13:03 by Lito Umanzor MD) Abdominal aortic aneurysm (AAA) >39 mm diameter Anemia in stage 3 chronic kidney disease Aortic root dilatation Bladder cancer Cancer Cancer of overlapping sites of bladder CKD (chronic kidney disease) stage 4, GFR 15-29 ml/min COPD (chronic obstructive pulmonary disease) PIKE (dyspnea on exertion) Essential (primary) hypertension Former smoker Hereditary and idiopathic neuropathy, unspecified History of cancer of ureter Hodgkin lymphoma Hypertension Impaired glucose tolerance (oral) Kidney disease 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 Open-angle glaucoma Other and unspecified hyperlipidemia PAD (peripheral artery disease) Parkinson's disease Paroxysmal atrial flutter Vascular disease, peripheral Surgical History Surgical History (Updated 11/23/19 @ 09:41 by Jefferson Rudd DO) History of angioplasty S/P insertion of iliac artery stent Family History Family History Father Hypertension Patient's father is Sibling Hypertension Family history of malignant neoplasm of male breast Family history of chronic obstructive pulmonary disease Family history unknown Family history of malignant neoplasm of breast in first degree relative Mother Patient's mother is Family history of Parkinson's disease, Onset Age: 79 Family history of Alzheimer's disease, Onset Age: 79 Acute myocardial infarction, Onset Age: 79 Other Familial primary pulmonary hypertension Social History Social History Smoking packs per day: 1 Smoking cigarettes per day: 20.0 Years smoked: 50 Smoking pack-years: 50.00 Smoking status: Former smoker Tobacco type: cigarettes Smoking end date: 06/01/12 Additional smoking assessment comments: 06/01/2012 Alcohol intake: never Substance use: never Substance use type: does not use Living arrangements: with family Gender identity (if verbalized by the patient): Male Spiritual care concerns: No Agree to blood products: Yes Anes - Eval Final PreProcedure Day of Procedure 03/21/20 13:01 Patient weight: normal Heart: regular rate and rhythm Lungs: clear to auscultat
[2020-03-22] VITALS (12 sets, daily range): BP systolic 144–179; BP diastolic 53–89; PULSE 55–65; RESP 16–20; TEMP 36.3–36.5; O2SAT 94–100
--- NOTE | ~2020-03-22 | XR_ITS ---
EXAMINATION: XR retrograde pyelogram BI DATE: 03/22/2020 09:24 INDICATION: Bladder cancer TECHNIQUE: 135 fluoroscopic images of the abdomen and pelvis were obtained during procedure performed by Dr. Burns. Radiologist was not present for the imaging or procedure. The amount of fluoroscopy t amalia used during this procedure was 1.0 minutes. COMPARISON: 11/24/2019 FINDINGS: Gout image demonstrates a left common and external iliac artery stent. Phlebolith in the left hemipel vis. Subsequent images demonstrate retrograde contrast injections into first the left ureter demonstr ating normal ureter and left renal collecting system with no hydroureteronephrosis or urothelial irre gularities. Subsequently a catheter is advanced into the proximal right ureter with contrast injectio n demonstrating mild right hydronephrosis. There are a few mobile gas bubbles change in size morpholo gy in the right renal pelvis. No urothelial irregularities in the contrast opacified right renal dhiraj ecting system, renal pelvis or proximal most right ureter. IMPRESSION: 1. Normal left retrograde urogram. 2. Mild right hydronephrosis of indeterminate etiology with the mid to distal right ureter not diagno stically evaluated on the provided images. See procedure note for further detail. Reviewed, dictated and finalized at location A. IMPRESSION: 1. Normal left retrograde urogram. 2. Mild right hydronephrosis of indeterminate etiology with the mid to distal r ight ureter not diagnostically evaluated on the provided images. See procedure note for further detail.
--- NOTE | 2020-03-22 06:31 | WPDHPUPDATE1 ---
History and Physical Update Update Date/Time: 03/22/20 06:31 History and Physical has been reviewed, including an updated exam of the patient. There are NO changes in the patient's condition. Risks, benefits, and alternatives have been discussed and questions answered. Patient agrees to proceed with procedure.
[2020-03-22] MEDS: LACTATED RINGERS 1,000 ML 30 ML IV CONT (08:07)
[2020-03-22] MEDS: ceFAZolin 2 GM/D5W 50 ML 2 GM/50 ML BAG IVPB (08:46)
--- NOTE | 2020-03-22 09:42 | P.OP_ITS ---
Procedure Note - Detailed Date of procedure: 03/22/20 Pre-op diagnosis: ureteral CA,Bladder CA Post-op diagnosis: same Procedure performed: 1. Cystoscopy with bilateral retrograde pyelography 2. Right ureteroscopy. 3. TURBT (large, 4-5cm). 4. Urethral dilatation Description of procedure: Patient is brought to the operative suite where he has prepped and draped in routine sterile fashion while in a dorsal lithotomy position. I was unable to pass a 19 F rigid cystoscope because of a bulbous urethral stricture. I dilated that from 16-26 F using Amplatz dilators. Then placed the rigid cystoscope perform bilateral retrograde pyelography. Left retrograde pyelogram was normal, without obstruction or filling defect. Right retrograde pyelogram was undertaken through his reimplanted right ureter/Boari flap. Both the right pyelogram and ureteroscopy showed no evidence of recurrence upper urinary tract urothelial carcinoma. Using a 24 F resectoscope and I resected an egg-like neoplasms in the anterior bladder wall at the 12 o'c lock position just inside the bladder neck. attempt to do and include detrusor muscle for pathological evaluation of invasion. The patient periphery of the Fedder cauterized with a rollerball electrode. Anesthesia: GLMA Surgeon: Syed Burns MD Drains: Yes (18F Schuler) Packing: No Pathology: yes Complications: No immediate complications Condition: stable Disposition: PACU
--- NOTE | 2020-03-22 09:46 | PM.PROC ---
Procedure Note - Detailed Date of procedure: 03/22/20 Pre-op diagnosis: Bladder CA Post-op diagnosis: same Procedure performed: Mitomycin C instillation in the bladder Description of procedure: With the patient in the supine position, a 16F Schuler catheter is placed using sterile technique. Using a protective facemask, gown and double layer of gloves Mitomycin-C in 50cc saline is administered through the catheter/into the bladder. The catheter is then plugged. Patient was instructed to lie supine x20min, then to roll both the left and right x20 min. each. Total dwell time will be 60 min., after which the bladder will be drained and catheter removed. Anesthesia: none Surgeon: Syed Burns MD Estimated blood loss (mL): 0 Drains: No Packing: No Pathology: none sent Complications: No immediate complications Condition: stable Disposition: PACU
--- NOTE | 2020-03-22 12:06 | SUR.PHASEII ---
PT AWAKE AND ALERT. DENIES PAIN.
== END 2020-03-22 12:45 | disposition home or self-care (01) ==
PROVIDERS: PCP Internal Medicine; Visit Provider Urology
PROC: (CPT 52352; principal; 2020-03-22 09:30)
PROC: 0TBB8ZZ Excision of Bladder, Via Natural or Artificial Opening Endoscopic (ICD-10-PCS; CPT 52240; 2020-03-22 09:30)
DX: C67.3 Malignant neoplasm of anterior wall of bladder (principal); N35.912 Unspecified bulbous urethral stricture, male; N13.30 Unspecified hydronephrosis; I71.4 Abdominal aortic aneurysm, without rupture; I12.9 Hypertensive chronic kidney disease with stage 1 through stage 4 chronic kidney disease, or unspecified chronic kidney disease; N18.4 Chronic kidney disease, stage 4 (severe); G20 Parkinson's disease; I48.92 Unspecified atrial flutter; I73.9 Peripheral vascular disease, unspecified; J44.9 Chronic obstructive pulmonary disease, unspecified; D63.1 Anemia in chronic kidney disease; Z79.01 Long term (current) use of anticoagulants; Z85.118 Personal history of other malignant neoplasm of bronchus and lung; Z92.3 Personal history of irradiation; Z87.891 Personal history of nicotine dependence
CPT/HCPCS: 52240; 51720; 74420; 88305; A9270; C1726; C1758; C1769; J0690; J1100; J2405; J2704; J3010; J7120; J9280; Q9966

== ENCOUNTER 2020-04-25 08:51 | Outpatient (CLI) | payer MEDICARE, SELFPAY ==
[2020-04-25 09:10] LABS: Hemoglobin 12.2 g/dL (14.0-18.0)
[2020-04-25 09:21] LABS: Anion Gap 8 mmol/L (8-16); Blood Urea Nitrogen 37 mg/dL (9-20); Carbon Dioxide 28 mmol/L (22-30); Chloride 104 mmol/L (98-107); Estimated Glomerular Filt Rate 22; Glucose 110 mg/dL (75-110); Potassium 4.8 mmol/L (3.4-5.0); Sodium 140 mmol/L (137-145)
[2020-04-25 09:25] LABS: Prothrombin Time 14.2 Seconds (11.1-14.7)
[2020-04-25 09:26] LABS: Partial Thromboplastin Time 35.1 SECONDS (22.3-36.8)
== END 2020-04-25 08:52 | disposition home or self-care (01) ==
LOC: ANHSURGERY 08:54
PROVIDERS: Anesthesiology; PCP Internal Medicine; Visit Provider Urology
DX: N18.4 Chronic kidney disease, stage 4 (severe) (principal); D63.1 Anemia in chronic kidney disease; Z01.818 Encounter for other preprocedural examination
CPT/HCPCS: 36415; 80048; 85014; 85018; 85610; 85730

== ENCOUNTER 2020-04-30 00:20 | Outpatient (CLI) | payer MEDICARE, SELFPAY ==
[2020-04-30 20:45] LABS: SARS-CoV-2 RNA PCR Negative
== END 2020-04-30 00:21 | disposition home or self-care (01) ==
LOC: ANHCOVIDDT 00:20
PROVIDERS: PCP Internal Medicine; Visit Provider Urology
DX: Z01.818 Encounter for other preprocedural examination (principal); Z20.828 Contact with and (suspected) exposure to other viral communicable diseases
CPT/HCPCS: 87635; C9803; U0003

== ENCOUNTER 2020-05-03 00:49 | Day surgery (SDC) | payer MEDICARE, SELFPAY ==
--- NOTE | 2020-04-23 16:46 | PM.HPGS ---
History of Present Illness History of Present Illness Consent: Risks, benefits, and alternatives have been discussed and questions answered. Patient agrees to proceed with procedure. Chief complaint: Bladder CA Narrative: Pineda Avalos is a 80 year old male who is very well known to me status post right distal ureterectomy in the remote past for upper tract urothelial carcinoma. He has had several recurrences urothelial carcinoma in his bladder, most recently an March 2020. At that time he had a fairly large neoplasm in his anterior bladder wall just inside the bladder neck. This was grossly resected entirely but pathology showed evidence of muscle invasion. He presents now for we resection of the bladder tumor base. Review of Systems Cardiovascular: Cardiovascular: Denies chest pain, Denies lightheadedness, Denies palpitations and Denies dyspnea Respiratory: Respiratory: Denies dyspnea Gastrointestinal: Gastrointestinal: Denies diarrhea, Denies nausea and Denies vomiting Genitourinary: Genitourinary: Denies hematuria and Denies dysuria Endocrine: Endocrine: Denies palpitations PMFSH Past Medical History Medical History Abdominal aortic aneurysm (AAA) >39 mm diameter Anemia in stage 3 chronic kidney disease Aortic root dilatation Bladder cancer Cancer Cancer of overlapping sites of bladder CKD (chronic kidney disease) stage 4, GFR 15-29 ml/min COPD (chronic obstructive pulmonary disease) PIKE (dyspnea on exertion) Essential (primary) hypertension Former smoker Hereditary and idiopathic neuropathy, unspecified History of cancer of ureter Hodgkin lymphoma Hypertension Impaired glucose tolerance (oral) Kidney disease 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 Open-angle glaucoma Other and unspecified hyperlipidemia PAD (peripheral artery disease) Parkinson's disease Paroxysmal atrial flutter Vascular disease, peripheral Surgical History Surgical History History of angioplasty S/P insertion of iliac artery stent Family History Family History Father Hypertension Patient's father is Sibling Hypertension Family history of malignant neoplasm of male breast Family history of chronic obstructive pulmonary disease Family history unknown Family history of malignant neoplasm of breast in first degree relative Mother Patient's mother is Family history of Parkinson's disease, Onset Age: 79 Family history of Alzheimer's disease, Onset Age: 79 Acute myocardial infarction, Onset Age: 79 Other Familial primary pulmonary hypertension Social History Social History Smoking packs per day: 1 Smoking cigarettes per day: 20.0 Years smoked: 50 Smoking pack-years: 50.00 Smoking status: Former smoker Tobacco type: cigarettes Smoking end date: 06/01/12 Additional smoking assessment comments: 06/01/2012 Alcohol intake: never Substance use: never Substance use type: does not use Gender identity (if verbalized by the patient): Male Spiritual care concerns: No Agree to blood products: Yes Meds Home Medications and Allergies Home Medications Medication Instructions Recorded Confirmed Type Centrum Silver 1 tablet PO DAILY 03/18/19 03/22/20 History cyanocobalamin (vitamin B-12) 1,000 mcg PO DAILY 03/18/19 03/22/20 History ferrous sulfate 324 mg PO DAILY 03/18/19 03/22/20 History folic acid 0.4 mg PO QPM 03/18/19 03/22/20 History calcitriol 0.25 mcg PO 3XW 06/17/19 03/22/20 History carbidopa-levodopa 1 tablet PO TID 06/17/19 03/22/20 History albuterol sulfate 90 mcg/actuation 1 inhalation INHALATION Q4H PRN 08/26/19 03/22/20 Rx aerosol inhaler #18 gm apixaban 2.5 mg tablet 2.5 mg PO BID #60 tablet 11/01/19
[2020-04-24 14:31] VITALS: BMI 19.7
[2020-05-03] VITALS (7 sets, daily range): BP systolic 126–173; BP diastolic 59–99; PULSE 56–67; RESP 16–24; TEMP 36.3; O2SAT 98–100
[2020-05-03] MEDS: LACTATED RINGERS 1,000 ML 30 ML IV CONT (06:42)
--- NOTE | 2020-05-03 06:45 | WPDHPUPDATE1 ---
History and Physical Update Update Date/Time: 05/03/20 06:45 History and Physical has been reviewed, including an updated exam of the patient. There are NO changes in the patient's condition. Risks, benefits, and alternatives have been discussed and questions answered. Patient agrees to proceed with procedure.
--- NOTE | 2020-05-03 07:29 | WPDANESEPP ---
Anes - Eval Pre Procedure Procedure: Operation Date: 05/03/20 08:15 Proposed Procedures p Re-Resection Bladder Tumor Base - Syed Burns MD Date/Time: 05/03/20 07:29 Pre Op Diagnosis: Bladder CA Patient Data Age: 80 Gender: M Height: 1.83 m Weight: 68.2 kg Last Vital Signs Temp 36.3 C L 05/03/20 06:20 Pulse 67 05/03/20 06:20 Resp 20 05/03/20 06:20 BP 145/60 H 05/03/20 06:20 Pulse Ox 98 05/03/20 06:20 Allergies Allergy/AdvReac Type Severity Reaction Status Date / Time latanoprost Allergy Mild CURLED Verified 05/03/20 07:24 EYELASHES UNDER AND AFFECTED EYESIGHT Home Medications Medication Instructions Recorded Confirmed Type Centrum Silver 1 tablet PO DAILY 03/18/19 05/03/20 History cyanocobalamin (vitamin B-12) 1,000 mcg PO DAILY 03/18/19 05/03/20 History ferrous sulfate 324 mg PO DAILY 03/18/19 05/03/20 History folic acid 0.4 mg PO QPM 03/18/19 05/03/20 History calcitriol 0.25 mcg PO 3XW 06/17/19 05/03/20 History carbidopa-levodopa 1 tablet PO TID 06/17/19 05/03/20 History albuterol sulfate 90 mcg/actuation 1 inhalation INHALATION Q4H PRN 08/26/19 05/03/20 Rx aerosol inhaler #18 gm apixaban 2.5 mg tablet 2.5 mg PO BID #60 tablet 11/01/19 05/03/20 Rx amiodarone 200 mg PO QAM 03/15/20 05/03/20 History gabapentin 300 mg PO HS 03/15/20 05/03/20 History Anoro Ellipta 1 inhalation INHALATION QAM 04/24/20 05/03/20 History Patient hx anesthesia problems: none Family hx anesthesia problems: none PMFSH Past Medical History Medical History Abdominal aortic aneurysm (AAA) >39 mm diameter Anemia in stage 3 chronic kidney disease Aortic root dilatation Bladder cancer Cancer Cancer of overlapping sites of bladder CKD (chronic kidney disease) stage 4, GFR 15-29 ml/min COPD (chronic obstructive pulmonary disease) PIKE (dyspnea on exertion) Essential (primary) hypertension Former smoker Hereditary and idiopathic neuropathy, unspecified History of cancer of ureter Hodgkin lymphoma Hypertension Impaired glucose tolerance (oral) Kidney disease 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 Open-angle glaucoma Other and unspecified hyperlipidemia PAD (peripheral artery disease) Parkinson's disease Paroxysmal atrial flutter Vascular disease, peripheral Surgical History Surgical History History of angioplasty S/P insertion of iliac artery stent Family History Family History Father Hypertension Patient's father is Sibling Hypertension Family history of malignant neoplasm of male breast Family history of chronic obstructive pulmonary disease Family history unknown Family history of malignant neoplasm of breast in first degree relative Mother Patient's mother is Family history of Parkinson's disease, Onset Age: 79 Family history of Alzheimer's disease, Onset Age: 79 Acute myocardial infarction, Onset Age: 80 Other Familial primary pulmonary hypertension Social History Social History Smoking packs per day: 1.25 Smoking cigarettes per day: 25.0 Years smoked: 58 Smoking pack-years: 72.50 Smoking status: Former smoker Tobacco type: cigarettes Smoking end date: 09/28/12 Additional smoking assessment comments: 06/01/2012 Alcohol intake: never Substance use: never Substance use type: does not use Living arrangements: with family Additional living arrangements comments: - LOUISA [phone] Gender identity (if verbalized by the patient): Male Spiritual care concerns: No Agree to blood products: Yes Exam Day of Procedure 05/03/20 07:29 Patient weight: normal Heart: regular rate and rhythm Lungs: clear to auscultation and normal air move
--- NOTE | 2020-05-03 07:52 | P.PNAN_ITS ---
Anes - Eval Final PreProcedure Day of Procedure 05/03/20 07:52 Patient weight: normal Heart: regular rate and rhythm Lungs: clear to auscultation Airway: Mallampati scale class III Neurological: alert and oriented Last oral intake: >/= 8 hours ASA classification: IV Emergent: no Anesthetic plan: proceed Anesthesia type and monitoring: general LMA and standard monitoring Informed Consent: The patient's anesthetic plan and its attendant risks and b enefits were discussed with the patient/family/POA. Questions were solicited and answers provided to the satisfaction of the patient/family/POA.
[2020-05-03] MEDS: ceFAZolin 2 GM/D5W 50 ML 2 GM/50 ML BAG IVPB (08:24)
--- NOTE | 2020-05-03 08:36 | PM.PROC ---
Procedure Note - Detailed Date of procedure: 05/03/20 Pre-op diagnosis: Bladder CA Post-op diagnosis: same Procedure performed: TURBT (re-resection, medium/4cm) Description of procedure: The patient was brought to the operative suite where he is prepped and draped in a routine sterile fashion while in the dorsal lithotomy position. This is done after the uneventful administration of systemic sedation. 2% Xylocaine jelly is introduced intraurethrally and allowed to stand for an appropriate period of time. A 24F resectoscope sheath was placed in the bladder and the bladder is circumferentially inspected carefully. There is an area of prior resection in the anterior bladder wall, just inside the bladder neck. This area is healing without obvious neoplastic regrowth at this point.. This area is resected in its entirety with an attempt made to include detrusor muscle for pathological evaluation of invasion. The base and periphery of this resected side is cauterized with a loop electrode. The bladder is emptied and the resectoscope was removed. The patient is taken to the recovery room having tolerated this procedure well. Anesthesia: GLMA Surgeon: Syed Burns MD Estimated blood loss (mL): 0 Packing: No Pathology: yes (Bladder tumor base) Complications: No immediate complications Condition: stable Disposition: PACU
== END 2020-05-03 10:01 | disposition home or self-care (01) ==
PROVIDERS: PCP Internal Medicine; Visit Provider Urology
PROC: 0TBB8ZZ Excision of Bladder, Via Natural or Artificial Opening Endoscopic (ICD-10-PCS; CPT 52235; principal; 2020-05-03 08:15)
DX: C67.3 Malignant neoplasm of anterior wall of bladder (principal); I71.4 Abdominal aortic aneurysm, without rupture; I12.9 Hypertensive chronic kidney disease with stage 1 through stage 4 chronic kidney disease, or unspecified chronic kidney disease; N18.30 Chronic kidney disease, stage 3 unspecified; J44.9 Chronic obstructive pulmonary disease, unspecified; G62.9 Polyneuropathy, unspecified; Z87.891 Personal history of nicotine dependence; Z85.72 Personal history of non-Hodgkin lymphomas; Z85.118 Personal history of other malignant neoplasm of bronchus and lung; H40.10X0 Unspecified open-angle glaucoma, stage unspecified; E78.5 Hyperlipidemia, unspecified; I73.9 Peripheral vascular disease, unspecified; I48.92 Unspecified atrial flutter; Z79.01 Long term (current) use of anticoagulants
CPT/HCPCS: 52235; 88305; 88307; A9270; J0690; J2704; J3010; J7120

== ENCOUNTER 2020-05-10 10:58 | Outpatient (CLI) | payer MEDICARE, SELFPAY ==
[2020-05-10 11:48] LABS: Cholesterol 135 mg/dL (0-200); HDL Direct 42 mg/dL; Triglycerides 73 mg/dL (<150)
[2020-05-10 12:01] LABS: LDL Cholesterol Direct 70 mg/dL
== END 2020-05-10 10:59 | disposition home or self-care (01) ==
LOC: ANHLAB 11:01
PROVIDERS: PCP Internal Medicine; Visit Provider Internal Medicine Cardiovascular Disease
DX: I73.9 Peripheral vascular disease, unspecified (principal); I10 Essential (primary) hypertension
CPT/HCPCS: 36415; 80061

== ENCOUNTER 2020-05-11 08:39 | Outpatient (CLI) | payer MEDICARE, SELFPAY ==
--- NOTE | ~2020-05-11 | CT_ITS ---
EXAMINATION: CT chest wo con DATE: 05/11/2020 09:13 INDICATION: Malignant neoplasm of the upper lobe of the left lung TECHNIQUE: Computed tomography (CT) of the chest was performed without intravenous contrast. The dose -length product (DLP) was 156.84 mGy-cm. Automated exposure control and iterative reconstruction tech [place] were employed. COMPARISON: 11/10/2019 FINDINGS: Again seen is a stable mass in the perihilar left upper lobe measuring approximately 3.3 x 2.3 cm. There is moderate emphysema. There is stable scarring in the lung apices, right greater than left. There are no new focal airspace opacities or suspicious nodules. A right internal jugular Port- A-Cath ends with its tip in the distal superior vena cava. No pathologically enlarged thoracic lymph nodes are identified. The heart size is normal. There is calcified coronary artery atherosclerosis. B ilateral gynecomastia is noted. There is mild thoracic spondylosis. IMPRESSION: 1. Stable perihilar mass of the left upper lobe, consistent with primary bronchogenic carcinoma. Reviewed, dictated and finalized at location [facility]. F WELLNESS OFFICER IMPRESSION: 1. Stable perihilar mass of the left upper lobe, consistent with primary bronch ogenic carcinoma.
== END 2020-05-11 08:40 | disposition home or self-care (01) ==
PROVIDERS: PCP Internal Medicine; Visit Provider Internal Medicine Hematology & Oncology
DX: C34.12 Malignant neoplasm of upper lobe, left bronchus or lung (principal)
CPT/HCPCS: 71250

== ENCOUNTER 2020-05-18 13:12 | Outpatient (CLI) | payer MEDICARE, SELFPAY ==
--- NOTE | 2020-05-18 14:15 | PCRCNOTE ---
SIX MINUTE WALK COMPLETED. HOME O2 WAS NOT REQUIRED. IT APPEARS THAT THE PATIENT WOULD NEED HOME O2, SATS ON FINGER PROBE AT REST ARE 95%, HEART RATE 66. ALTHOUGH PATIENT APPEARS MILDLY SOB WITH AUDIBLE WHEEZING. ONCE PT BEGAN WALK, AT 200 FEET I CHECK PULSE OX AND IT WASN'T PICKING UP SIGNAL. PATIENT HAS PARKINSONS AND IS VERY SHAKY, ESPECIALLY ONCE HE BEGAN WALKING. CHANGED PULSE OX TO A EAR PROBE, SATS ARE 99% ON ROOM AIR, WALKED WITH PATIENT FOR REMAINING 600 FEET TO ENSURE GOOD SIGNAL AND NO DESATS. LOWEST SAT WITH EXERTION ON EAR PROBE WAS 93% HEART RATE 89. HAND WRITTEN SIX MINUTE WALK FORM SCANNED IN. RELIABLE SATS CAN BE OBTAINED WITH EAR PROBE
== END 2020-05-18 13:13 | disposition home or self-care (01) ==
LOC: ANHPFT 13:14
PROVIDERS: PCP Internal Medicine; Visit Provider Internal Medicine Critical Care Medicine
DX: R09.02 Hypoxemia (principal)
CPT/HCPCS: 99199

== ENCOUNTER 2020-05-28 08:35 | Outpatient (CLI) | payer MEDICARE, SELFPAY ==
--- NOTE | ~2020-05-28 | CT_ITS ---
EXAMINATION: CT abdomen pelvis wo con DATE: 05/28/2020 08:53 INDICATION: Malignant neoplasm of overlapping sites of bladder medical history right ureteral cancer TECHNIQUE: Computed tomography (CT) of the abdomen and pelvis was performed without intravenous contr ast. Automated exposure control and iterative reconstruction technique were employed. Exam dose: 303 .84 mGy-cm total exam DLP. COMPARISON: 05/10/2019 PET/CT scan 06/07/2018 CT abdomen pelvis FINDINGS: There are moderate emphysematous changes in the lower lung zones. No infiltrate or consolid ation or pulmonary mass lesion is identified at the included lower lung smith. Normal heart size. No pericardial or pleural effusion. The liver, spleen, pancreas, and adrenal glands are unremarkable. The gallbladder is present. No bile duct or pancreatic duct dilatation. Interval resolution of right renal stone and right hydroureteronephrosis since 06/07/2018. Punctate nonobstructing lower pole left renal calculus versus small arterial calcification. There is extensive atherosclerotic calcification of the renal arteries. No ureteral calculus or hydroureterone phrosis. There is interval resection and mild deformity of the urinary bladder since 06/07/2018. There is extensive abdominal aortic calcification as well as calcification of the celiac and superior mesenteric, inferior mesenteric and iliac and femoral arteries. Fusiform up to 3.8 cm infrarenal abd ominal aortic aneurysm. Left external iliac artery stent. No intraperitoneal or retroperitoneal or pelvic mass lesion or adenopathy or ascites. Normal appendix. No bowel obstruction, bowel wall thickening, pneumatosis or intraperitoneal free air . Small fat-containing right inguinal hernia. Left hydrocele. No suspicious osteolytic or osteoblastic lesions. IMPRESSION: Status post bladder resection for history of right ureteral, bladder cancer; no metastat ic disease is identified Resolution of right ureteral calculus right hydroureteronephrosis Fusiform infrarenal 3.8 cm abdominal aortic aneurysm. Left external iliac artery stent. Reviewed, dictated and finalized at [facility]. Reviewed, dictated and finalized at location [facility]. OELECTRIC PRODUCTION MANAGER IMPRESSION: Status post bladder resection for history of right ureteral, bladd er cancer; no metastatic disease is identified Resolution of right ureteral calculus right hydroureteronephrosis Fusiform infrarenal 3.8 cm abdominal aortic aneurysm. Left external iliac arter y stent.
== END 2020-05-28 08:36 | disposition home or self-care (01) ==
PROVIDERS: PCP Internal Medicine; Visit Provider Urology
DX: C67.8 Malignant neoplasm of overlapping sites of bladder (principal); I72.2 Aneurysm of renal artery
CPT/HCPCS: 74176

== ENCOUNTER 2020-07-03 11:59 | Outpatient (CLI) | payer MEDICARE, SELFPAY ==
[2020-07-03 12:41] LABS: Creatinine Urine 87.7 mg/dL; Total Protein Urine Random 58 mg/dL; Ur Ttl Prot Creatinine Ratio 0.66 mg/mg (0-0.20)
[2020-07-03 12:45] LABS: Cholesterol 115 mg/dL (0-200); HDL Direct 45 mg/dL; Triglycerides 140 mg/dL (<150)
[2020-07-03 12:49] LABS: Hemoglobin A1C 4.9 % (<5.7)
[2020-07-03 12:56] LABS: LDL Cholesterol Direct 40 mg/dL
[2020-07-03 13:10] LABS: Parathyroid Intact 149.1 pg/mL (7.5-53.5)
[2020-07-03 13:25] LABS: Vitamin D 25 Hydroxy 25.7 ng/mL
[2020-07-03 14:40] LABS: Albumin Level 3.7 g/dL (3.5-5.1); Anion Gap 5 mmol/L (8-16); Blood Urea Nitrogen 35 mg/dL (9-20); Carbon Dioxide 28 mmol/L (22-30); Chloride 104 mmol/L (98-107); Estimated Glomerular Filt Rate 20; Glucose 100 mg/dL (75-110); Phosphorus 3.6 mg/dL (2.5-4.5); Potassium 5.1 mmol/L (3.4-5.0); Sodium 137 mmol/L (137-145)
== END 2020-07-03 12:00 | disposition home or self-care (01) ==
LOC: ANHLAB 12:02
PROVIDERS: PCP Internal Medicine; Visit Provider Internal Medicine Nephrology
DX: E78.5 Hyperlipidemia, unspecified (principal); R73.03 Prediabetes; E53.8 Deficiency of other specified B group vitamins; E55.9 Vitamin D deficiency, unspecified; I12.9 Hypertensive chronic kidney disease with stage 1 through stage 4 chronic kidney disease, or unspecified chronic kidney disease; N18.4 Chronic kidney disease, stage 4 (severe); R80.8 Other proteinuria
CPT/HCPCS: 36415; 80061; 80069; 82306; 82570; 82607; 83036; 83970; 84156

== ENCOUNTER 2020-10-01 13:43 | Emergency (ER) | payer MEDICARE, SELFPAY ==
[2020-10-01 13:50] VITALS: BP 105/53; PULSE 69; RESP 24; TEMP 36.9; O2SAT 100
--- NOTE | 2020-10-01 14:09 | ED.URI ---
HPI - URI/Sore Throat General Chief Complaint: Upper Respiratory Infection Stated Complaint: hoarse voice Time Seen by Provider: 10/01/20 14:08 Source: patient and RN notes reviewed Mode of arrival: ambulatory Limitations: no limitations History of Present Illness HPI Narrative: 80-year-old male presents concern for 2-day history of hoarse voice. He denies any sore throat, cough, shortness of breath, fever, body aches, chills, sweats. Reports occasional mild rhinorrhea. Denies nasal congestion or ear fullness. Denies difficulty swallowing, drooling. Denies dental problems or foul taste in his mouth. Reports he has been fully covered vaccinated. MD elicited complaint: other (Hoarse voice) Related Data Home Medications Medication Instructions Recorded Confirmed Centrum Silver 1 tablet PO DAILY 03/18/19 08/20/20 cyanocobalamin (vitamin B-12) 1,000 mcg PO DAILY 03/18/19 08/20/20 ferrous sulfate 324 mg PO DAILY 03/18/19 08/20/20 folic acid 0.4 mg PO QPM 03/18/19 08/20/20 carbidopa-levodopa 1 tablet PO TID 06/17/19 08/20/20 calcitriol 0.25 mcg capsule 0.25 mcg PO DAILY cap 07/03/20 08/20/20 cholecalciferol (vitamin D3) 50 mcg PO DAILY 07/09/20 08/20/20 [Vitamin D3] Allergies Allergy/AdvReac Type Severity Reaction Status Date / Time latanoprost Allergy Mild CURLED Verified 08/16/20 11:38 EYELASHES UNDER AND AFFECTED EYESIGHT Review of Systems Review of Systems: Narrative: CONSTITUTIONAL: Denies malaise, chills, sweats, or fever. EYES: Denies visual changes, redness, or discharge. ENT: Reports occasional rhinorrhea, and hoarse voice. Denies congestion, sinus pain, otalgia and sore throat. CARDIOVASCULAR: Denies chest pain, palpitations, or edema. RESPIRATORY: Denies cough or dyspnea. GASTROINTESTINAL: Denies abdominal pain, nausea, vomiting, diarrhea SKIN: Denies rash or itching. MUSCULOSKELETAL: Denies myalgia. NEUROLOGIC: Denies headache. All systems reviewed & are unremarkable except as noted in HPI and below PMFSH Past Medical History Medical History Abdominal aortic aneurysm (AAA) >39 mm diameter Anemia in stage 3 chronic kidney disease Aortic root dilatation Bladder cancer Cancer Cancer of overlapping sites of bladder CKD (chronic kidney disease) stage 4, GFR 15-29 ml/min COPD (chronic obstructive pulmonary disease) PIKE (dyspnea on exertion) Essential (primary) hypertension Former smoker Hereditary and idiopathic neuropathy, unspecified History of cancer of ureter Hodgkin lymphoma Hypertension Impaired glucose tolerance (oral) Kidney disease 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 Open-angle glaucoma Other and unspecified hyperlipidemia PAD (peripheral artery disease) Parkinson's disease Paroxysmal atrial flutter Vascular disease, peripheral Surgical History Surgical History History of angioplasty S/P insertion of iliac artery stent Family History Family History Father Hypertension Patient's father is Sibling Hypertension Family history of malignant neoplasm of male breast Family history of chronic obstructive pulmonary disease Family history unknown Family history of malignant neoplasm of breast in first degree relative Mother Patient's mother is Family history of Parkinson's disease, Onset Age: 79 Family history of Alzheimer's disease, Onset Age: 79 Acute myocardial infarction, Onset Age: 80 Other Familial primary pulmonary hypertension Social History Social History Smoking packs per day: 1.25 Smoking cigarettes per day: 25.0 Years smoked: 58 Smoking pack-years: 72.50 Smoking status: Former smoker Tobacco type: cigarettes Smoking end date: 09/28/12 Additional smoking as
== END 2020-10-01 14:29 | disposition home or self-care (01) ==
PROVIDERS: Emergency Provider Nurse Practitioner; PCP Internal Medicine
DX: J04.0 Acute laryngitis (principal); Z87.891 Personal history of nicotine dependence; I12.9 Hypertensive chronic kidney disease with stage 1 through stage 4 chronic kidney disease, or unspecified chronic kidney disease; N18.4 Chronic kidney disease, stage 4 (severe); J44.9 Chronic obstructive pulmonary disease, unspecified; I73.9 Peripheral vascular disease, unspecified; I48.91 Unspecified atrial fibrillation; Z85.51 Personal history of malignant neoplasm of bladder; Z85.54 Personal history of malignant neoplasm of ureter; Z85.118 Personal history of other malignant neoplasm of bronchus and lung; Z85.71 Personal history of Hodgkin lymphoma; Z95.1 Presence of aortocoronary bypass graft; D64.9 Anemia, unspecified
CPT/HCPCS: 99211; G0463

== ENCOUNTER 2020-10-15 08:33 | Outpatient (CLI) | payer MEDICARE, SELFPAY ==
--- NOTE | ~2020-10-15 | CT_ITS ---
EXAMINATION: CT chest abdomen pelvis wo con DATE: 10/15/2020 09:00 INDICATION: History of lung and bladder cancer TECHNIQUE: Transaxial computed tomographic images of the chest, abdomen, and pelvis were obtained. Th e dose-length product (DLP) was 379.42 mGy-cm. Automated exposure control and iterative reconstructio n technique were employed. COMPARISON: 05/08/2020, 05/11/2020, 11/10/2019 FINDINGS: CHEST CT: A perihilar left upper lobe mass persists and, although difficult to measure, has increased in size. There is been an increase in peripheral opacities extending laterally to the pleural surface. There i s moderate emphysema. Scarring is noted in the lung apices. A right internal jugular Port-A-Cath ends with its tip at the distal superior vena cava. There is no pleural effusion or pneumothorax. No path ologically enlarged thoracic lymph nodes are identified. The heart size is normal. Calcified coronary artery atherosclerosis is noted. There is bilateral gynecomastia. There is mild thoracic spondylosis . ABDOMEN/PELVIS CT: Within the limitations of noncontrast examination, the liver, spleen, pancreas, gallbladder, and righ t adrenal gland are normal. There is a 2.2 x 1.4 cm left adrenal nodule, not definitely identified on the prior examination. Vascular calcifications are noted in the kidneys. There is a 3.8 cm fusiform aneurysm of the infrarenal abdominal aorta. No pathologically enlarged abdominal or pelvic lymph node s are identified. There is calcified atherosclerosis of the aorta and many of the other arteries. The re is no free intraperitoneal gas or evidence of bowel obstruction. There is mild lumbar spondylosis. IMPRESSION: 1. Perihilar left upper lobe mass with apparent increase in size, consistent with primary bronchogeni c carcinoma. 2. Left adrenal mass, possibly metastatic disease, characterization limited without intravenous contr ast. Reviewed, dictated and finalized at location [facility]. IMPRESSION: 1. Perihilar left upper lobe mass with apparent increase in size, consistent wi primary bronchogenic carcinoma. 2. Left adrenal mass, possibly metastatic disease, characterization limited wit hout intravenous contrast.
== END 2020-10-15 08:34 | disposition home or self-care (01) ==
PROVIDERS: PCP Internal Medicine; Visit Provider Internal Medicine Hematology & Oncology
DX: C67.9 Malignant neoplasm of bladder, unspecified (principal); C34.12 Malignant neoplasm of upper lobe, left bronchus or lung; E27.9 Disorder of adrenal gland, unspecified
CPT/HCPCS: 71250; 74176

== ENCOUNTER 2020-10-23 13:25 | Outpatient (CLI) | payer MEDICARE, SELFPAY ==
--- NOTE | ~2020-10-23 | PE_ITS ---
EXAMINATION: PET skull to mid thigh DATE: 10/23/2020 15:28 INDICATION: Malignant neoplasm of upper lobe of left lung. TECHNIQUE: Blood glucose level was 117 mg/dL. 10.740 mCi of 18-fluorodeoxyglucose (18-FDG) was admini stered i.v. Low dose computed tomography (CT) images were acquired from the base of the brain to the proximal thighs for attenuation correction and anatomic localization. Automated exposure control was employed. Dose-length product (DLP) was 436 mGy-cm. Positron emission tomography (PET) images were ac quired in the same distribution. COMPARISON: CT chest, abdomen, and pelvis 10/15/2020, CT abdomen and pelvis 05/28/20, CT chest 0 FINDINGS: Head/neck: There is increased activity in the nasopharynx, major salivary glands, and glottis without CT correlate, likely physiologic. There are no pathologically enlarged lymph nodes. There is a right internal jugular port with tip in superior vena cava. Chest: There is mild emphysema. There is scarring at the lung apices, right worse then left. There ar e airspace opacities in left upper lobe from the hilum to the peripheral pleura with maximum SUV of 9 .6. There is an 11 x 17 mm prevascular node with increased activity. There is lymphadenopathy in the aorticopulmonary window with increased activity. The heart size is normal. There are coronary artery calcifications. There are calcifications of aortic valve. No pericardial effusion. Abdomen/pelvis/proximal thighs: The liver, gallbladder, spleen, pancreas, and right adrenal gland are normal. There is a 1.9 cm mass in left adrenal gland measuring soft tissue attenuation with increase d activity. The kidneys are normal. There is a 4.0 cm fusiform aneurysm of infrarenal aorta. There is a stent in left external iliac artery. The prostate is mildly enlarged. A left-sided varicocele is n oted. There are no dilated loops of bowel. There are no pathologically enlarged lymph nodes. There is no free intraperitoneal fluid. There is sclerosis in left inferior pubic ramus with increased activi ty. IMPRESSION: 1. Airspace opacities in left lung upper lobe with increased activity, worsened from 05/11/20, consis tent with primary bronchogenic carcinoma. 2. Mediastinal lymphadenopathy with increased activity, consistent metastatic disease. 3. Left adrenal mass and sclerotic lesion in left inferior pubic ramus with increased activity, new f rom 05/20/2020, consistent with metastatic disease. Reviewed, dictated and finalized at location [facility]. IMPRESSION: 1. Airspace opacities in left lung upper lobe with increased activity, worsened from 05/11/20, consistent with primary bronchogenic carcinoma. 2. Mediastinal lymphadenopathy with increased activity, consistent metastatic d isease. 3. Left adrenal mass and sclerotic lesion in left inferior pubic ramus with inc reased activity, new from 05/20/2020, consistent with metastatic disease.
[2020-10-23 13:48] LABS: Glucose Point of Care 117 mg/dl (65-105)
== END 2020-10-23 13:26 | disposition home or self-care (01) ==
LOC: ANHIMG 13:28
PROVIDERS: PCP Internal Medicine; Visit Provider Radiology Radiation Oncology
DX: C34.12 Malignant neoplasm of upper lobe, left bronchus or lung (principal)
CPT/HCPCS: 78815; 82948; A9552

== ENCOUNTER → 2020-10-31 00:44 | Outpatient (CLI) | payer MEDICARE, SELFPAY ==
[2020-10-31 17:41] LABS: SARS-CoV-2 RNA PCR Negative
== END ==
PROVIDERS: PCP Internal Medicine; Visit Provider Otolaryngology
DX: Z01.812 Encounter for preprocedural laboratory examination (principal); Z20.822 Contact with and (suspected) exposure to COVID-19
CPT/HCPCS: C9803; U0003; U0005

== ENCOUNTER 2020-11-02 01:01 | Day surgery (SDC) | payer MEDICARE, SELFPAY ==
[2020-10-30 15:24] VITALS: BMI 21.4
--- NOTE | 2020-11-01 09:14 | PM.IMHP ---
H&P: HPI History of Present Illness Date/Time: 11/01/20 09:14 80-year-old gentleman with a history of bronchogenic carcinoma presents for planned surgical procedure, injection of the left vocal cord, he reports no new symptoms or changes in his medical history in the previous week. Chief Complaint: Paralyzed left vocal cord, choking, coughing, hoarse voice Review of Systems Constitutional: Constitutional: Denies fatigue, Denies fever(s) and Denies lethargy Eyes: Eyes: Denies blurry vision and Denies change in vision ENT: Reports as per HPI Cardiovascular: Cardiovascular: Denies chest pain Respiratory: Respiratory: Denies cough Endocrine: Endocrine: Denies fatigue Hematologic/Lymphatic: Hematologic/Lymphatic: Denies easy bleeding, Denies easy bruising and Denies lymphadenopathy Allergic/Immunologic: Allergic/Immunologic: Denies seasonal rhinorrhea [facility] Past Medical History Medical History Abdominal aortic aneurysm (AAA) >39 mm diameter Anemia in stage 3 chronic kidney disease Aortic root dilatation Bladder cancer Cancer Cancer of overlapping sites of bladder CKD (chronic kidney disease) stage 4, GFR 15-29 ml/min COPD (chronic obstructive pulmonary disease) PIKE (dyspnea on exertion) Essential (primary) hypertension Former smoker Hereditary and idiopathic neuropathy, unspecified History of cancer of ureter Hodgkin lymphoma Hypertension Impaired glucose tolerance (oral) Kidney disease 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 Open-angle glaucoma Other and unspecified hyperlipidemia PAD (peripheral artery disease) Parkinson's disease Paroxysmal atrial flutter Vascular disease, peripheral Surgical History Surgical History History of angioplasty S/P insertion of iliac artery stent Family History Family History Father Hypertension Patient's father is Sibling Hypertension Family history of malignant neoplasm of male breast Family history of chronic obstructive pulmonary disease Family history unknown Family history of malignant neoplasm of breast in first degree relative Mother Patient's mother is Family history of Parkinson's disease, Onset Age: 79 Family history of Alzheimer's disease, Onset Age: 79 Acute myocardial infarction, Onset Age: 80 Other Hypertension Grandparent Hypertension Other Familial primary pulmonary hypertension Social History Social History Smoking packs per day: 1 Smoking cigarettes per day: 20.0 Years smoked: 54 Smoking pack-years: 54.00 Smoking status: Former smoker Tobacco type: cigarettes Second hand tobacco smoke exposure: Yes Smoking end date: 09/28/12 Additional smoking assessment comments: 06/01/2012 Alcohol intake: never Substance use: never Substance use type: does not use Additional living arrangements comments: -LOUISA Gender identity (if verbalized by the patient): Male Spiritual care concerns: No Agree to blood products: Yes Meds Home Medications and Allergies Home Medications Medication Instructions Recorded Confirmed Type Centrum Silver 1 tablet PO DAILY 03/18/19 10/30/20 History cyanocobalamin (vitamin B-12) 2,000 mcg PO DAILY 03/18/19 10/30/20 History ferrous sulfate 324 mg PO DAILY 03/18/19 10/30/20 History folic acid 0.4 mg PO QPM 03/18/19 10/30/20 History carbidopa-levodopa 1 tablet PO TID 06/17/19 10/30/20 History albuterol sulfate 90 mcg/actuation 1 inhalation INHALATION Q4H PRN 08/26/19 10/30/20 Rx aerosol inhaler #18 gm calcitriol 0.25 mcg capsule 0.25 mcg PO 3XW cap 07/03/20 10/30/20 History cholecalciferol (vitamin D3) 50 mcg PO DAILY 07/09/20 10/30/20 History [Vitamin D3] apixaban 2.5 mg tablet 2.5 mg P
[2020-11-02] VITALS (8 sets, daily range): BP systolic 130–169; BP diastolic 62–71; PULSE 58–72; RESP 10–22; TEMP 36.2–36.3; O2SAT 98–100; BMI 20.8
--- NOTE | 2020-11-02 07:13 | WPDHPUPDATE1 ---
History and Physical Update Update Date/Time: 11/02/20 07:13 History and Physical has been reviewed, including an updated exam of the patient. There are NO changes in the patient's condition. Risks, benefits, and alternatives have been discussed and questions answered. Patient agrees to proceed with procedure.
[2020-11-02 08:31] LABS: Partial Thromboplastin Time 37.1 SECONDS (22.3-36.8); Prothrombin Time 13.8 Seconds (11.1-14.7)
--- NOTE | 2020-11-02 08:37 | SUR.PREOP ---
0836- Notified Dr. Montero patient's PTT 37.1 from lab draw sent this AM at 0814, with history of stage [address] Winston LANDRY to proceed with procedure. 0837- Notified Dr. Dasilva patient's PTT 37.1 from lab draw sent this AM at 0814, with history of stage [address] Brown LANDRY to proceed with procedure.
--- NOTE | 2020-11-02 08:43 | WPDANESEPPF ---
Anes - Initial Pre Proc Eval Procedure: Operation Date: 11/02/20 09:45 Proposed Procedures p Direct Laryngoscopy, Left Vocal Cord Injection - Jose Dasilva MD Date/Time: 11/02/20 08:43 Surgeon: Jose Dasilva MD Pre Op Diagnosis: chronic hoarseness Patient Data Age: 80 Gender: M Height: 5 ft 8 in Weight: 62.2 kg Allergies Allergy/AdvReac Type Severity Reaction Status Date / Time latanoprost Allergy Mild CURLED Verified 11/02/20 07:53 EYELASHES UNDER AND AFFECTED EYESIGHT Home Medications Medication Instructions Recorded Confirmed Type Centrum Silver 1 tablet PO DAILY 03/18/19 10/30/20 History cyanocobalamin (vitamin B-12) 2,000 mcg PO DAILY 03/18/19 10/30/20 History ferrous sulfate 324 mg PO DAILY 03/18/19 10/30/20 History folic acid 0.4 mg PO QPM 03/18/19 10/30/20 History carbidopa-levodopa 1 tablet PO TID 06/17/19 10/30/20 History albuterol sulfate 90 mcg/actuation 1 inhalation INHALATION Q4H PRN 08/26/19 10/30/20 Rx aerosol inhaler #18 gm calcitriol 0.25 mcg capsule 0.25 mcg PO 3XW cap 07/03/20 10/30/20 History cholecalciferol (vitamin D3) 50 mcg PO DAILY 07/09/20 10/30/20 History [Vitamin D3] apixaban 2.5 mg tablet 2.5 mg PO BID #60 tablet 08/06/20 10/30/20 Rx gabapentin 300 mg capsule 300 mg PO HS #90 cap 08/27/20 10/30/20 Rx Anoro Ellipta 1 inh INHALATION QAM 10/30/20 10/30/20 History amiodarone 200 mg PO QAM 10/30/20 10/30/20 History azelastine 137 mcg (0.1 %) nasal 1 spray INTRANASAL Q12H #30 ml 10/30/20 10/30/20 Rx spray aerosol Laboratory Tests 11/02/20 08:14 PT 13.8 Seconds Seconds (11.1-14.7) INR 1.0 APTT 37.1 SECONDS H SECONDS (22.3-36.8) Patient hx anesthesia problems: none Family hx anesthesia problems: none PMFSH Past Medical History Medical History Abdominal aortic aneurysm (AAA) >39 mm diameter Anemia in stage 3 chronic kidney disease Aortic root dilatation Bladder cancer Cancer Cancer of overlapping sites of bladder CKD (chronic kidney disease) stage 4, GFR 15-29 ml/min COPD (chronic obstructive pulmonary disease) PIKE (dyspnea on exertion) Essential (primary) hypertension Former smoker Hereditary and idiopathic neuropathy, unspecified History of cancer of ureter Hodgkin lymphoma Hypertension Impaired glucose tolerance (oral) Kidney disease 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 Open-angle glaucoma Other and unspecified hyperlipidemia PAD (peripheral artery disease) Parkinson's disease Paroxysmal atrial flutter Vascular disease, peripheral Surgical History Surgical History History of angioplasty S/P insertion of iliac artery stent Family History Family History Father Hypertension Patient's father is Sibling Hypertension Family history of malignant neoplasm of male breast Family history of chronic obstructive pulmonary disease Family history unknown Family history of malignant neoplasm of breast in first degree relative Mother Patient's mother is Family history of Parkinson's disease, Onset Age: 79 Family history of Alzheimer's disease, Onset Age: 79 Acute myocardial infarction, Onset Age: 80 Other Hypertension Grandparent Hypertension Other Familial primary pulmonary hypertension Social History Social History Smoking packs per day: 1 Smoking cigarettes per day: 20.0 Years smoked: 54 Smoking pack-years: 54.00 Smoking status: Former smoker Tobacco type: cigarettes Second hand tobacco smoke exposure: Yes Smoking end date: 09/28/12 Additional smoking assessment comments: 06/01/2012 Alcohol intake: never Substance use: never Substance use type: does not use Living arrangements: with f
[2020-11-02] MEDS: LACTATED RINGERS 1,000 ML 30 ML IV CONT (08:49)
--- NOTE | 2020-11-02 10:35 | PM.PROC ---
Procedure Note - Detailed Date of procedure: 11/02/20 Pre-op diagnosis: chronic hoarseness left vocal cord paralysis Post-op diagnosis: same Procedure performed: Direct laryngoscopy Injection laryngoplasty with prolaryn plus Description of procedure: The patient was correctly identified and consent was verified in the preoperative holding area. The left neck was marked as this was a left-sided injection. The patient was then brought to the operating room and a time-out was performed. Anesthesia was induced and endotracheal tube was secured the patient's airway and taped to the right. The bed was then rotated. The patient was correctly positioned all equipment verified and set up and moist Ray-Priscilla placed in the [place] this patient's mouth over the upper gingiva which were edentulous. A [employer] laryngoscope was then utilized to perform direct laryngoscopy bringing the vocal folds into view. Of note the left vocal fold was atrophied and very lateralized. Under 0 degree endoscope visualization the left vocal fold was injected lateral to the thyroid arytenoid muscle in 3 positions with a total of 9 cc of prolaryn plus. Good medialization in the anterior and mid portions were noted poor medialization occurred posteriorly and I found this difficult to get medialized. Following the procedure the vocal cord was in a much more normal midline slightly off midline to the left position. All the hardware including the Ray-Priscilla removed and accounted for. Care the patient was turned over to Anesthesiology. There were no complications. Anesthesia: GETA Surgeon: Jose Dasilva MD Estimated blood loss (mL): 0 Complications: No immediate complications Condition: stable Disposition: PACU Findings: Left completely lateralize vocal cord atrophy as well good medialization anteriorly and mid cord minimal posteriorly
--- NOTE | 2020-11-02 11:56 | SUR.PHASEII ---
Dr. Dasilva called about Eliquis and told patient he didn't have to stop Eliquis for this procedure. Patient told RN he did stop it but per Brown can be restarted right away.
== END 2020-11-02 12:20 | disposition home or self-care (01) ==
PROVIDERS: Anesthesiology; PCP Internal Medicine; Visit Provider Otolaryngology
PROC: 0CJS8ZZ Inspection of Larynx, Via Natural or Artificial Opening Endoscopic (ICD-10-PCS; CPT 31570; principal; 2020-11-02 09:45)
DX: J38.01 Paralysis of vocal cords and larynx, unilateral (principal); Z85.118 Personal history of other malignant neoplasm of bronchus and lung; I12.9 Hypertensive chronic kidney disease with stage 1 through stage 4 chronic kidney disease, or unspecified chronic kidney disease; N18.30 Chronic kidney disease, stage 3 unspecified; I71.4 Abdominal aortic aneurysm, without rupture; Z85.51 Personal history of malignant neoplasm of bladder; Z87.891 Personal history of nicotine dependence; Z85.54 Personal history of malignant neoplasm of ureter; I73.9 Peripheral vascular disease, unspecified; G20 Parkinson's disease; I48.0 Paroxysmal atrial fibrillation; Z85.110 Personal history of malignant carcinoid tumor of bronchus and lung; J44.9 Chronic obstructive pulmonary disease, unspecified; Z95.5 Presence of coronary angioplasty implant and graft; Z79.01 Long term (current) use of anticoagulants; Z79.51 Long term (current) use of inhaled steroids; R05 Cough
CPT/HCPCS: 31570; 36415; 85610; 85730; A9270; C1878; J7120